=== PATIENT | female | born 1950 | race Caucasian/White ===

== ENCOUNTER → 2016-10-28 | Outpatient (CLI) | payer MEDICARE, BC ==
--- NOTE | 2016-10-28 11:02 | RADIOLOGY REPORT (SQ) ---
EXAM DESCRIPTION: MRI HEAD COMBO COMPLETED DATE/TIME: 10/28/2016 9:38 am REASON FOR STUDY: LUNG CA (C34.02) C34.02 MALIGNANT NEOPLASM OF LEFT MAIN BRONCHUS COMPARISON: None. TECHNIQUE: Multiplanar imaging includes noncontrasted T1, T2, FLAIR, diffusion with ADC map and post gadolinium contrast T1 sequences. Images stored on PACS. CONTRAST TYPE AND DOSE: 17 mL Multihance. RENAL FUNCTION: GFR > 60. LIMITATIONS: None. FINDINGS: ANATOMY: No developmental anomalies. Normal vascular flow voids. Pituitary fossa normal. CSF SPACES: Normal in size and contour. No hemorrhage. CEREBRUM: Sulci and gyri normal in size and contour. Moderate spotty diffuse increased white matter signal on FLAIR imaging from in the bifrontal, biparietal regions and bilateral temporal lobes which has the appearance of old demyelinating disease or small vessel ischemic change. No evidence of hemor rhage, mass, or extraaxial fluid collection. No abnormal enhancement post contrast. POSTERIOR FOSSA: No abnormal brain parenchymal signal. No hemorrhage. No edema, masses, or mass effec t. Internal auditory canals, cerebellopontine angles, mastoids normal. No enhancing lesions. No abnor mal enhancement post contrast. DIFFUSION IMAGING: Negative for acute or subacute infarction. ORBITS: No masses. Globes normal. PARANASAL SINUSES: No fluid levels. Mucosa normal. OTHER: No other significant finding. IMPRESSION: No findings worrisome for brain parenchymal metastatic disease given history lung cancer . Chronic white matter disease, question old demyelinating process versus small vessel ischemic change. No acute brain parenchymal findings. TECHNICAL DOCUMENTATION: JOB ID: [id number] [email or web address]- All Rights Reserved
== END ==
LOC: RAD 07:44
PROVIDERS: ATTEND Radiology Radiation Oncology
DX: C34.02 Malignant neoplasm of left main bronchus (principal)
CPT/HCPCS: 82565; 70553; A9577

== ENCOUNTER → 2016-11-09 | Outpatient (CLI) | payer MEDICARE, BC ==
--- NOTE | 2016-11-10 09:23 | RADIOLOGY REPORT (SQ) ---
EXAM DESCRIPTION: PET CT SKULL/THIGH COMPLETED DATE/TIME: 11/09/2016 9:55 pm REASON FOR STUDY: LUNG CA C34.02 MALIGNANT NEOPLASM OF LEFT MAIN BRONCHUS COMPARISON: Outside studies not available RADIONUCLIDE AND DOSE: 11.23 mCi F18 FDG The route of agent administration: Intravenous FASTING BLOOD SUGAR: 96 mg/dl CONTRAST TYPE AND DOSE: No CT contrast given. TECHNIQUE: Blood glucose level was verified. Above dose of FDG was injected intravenously. 2-D seg mented attenuation correction images were obtained from the base of the skull to the midthighs. Nonc ontrast CT images were obtained for attenuation correction and fusion with emission images. CT image s were performed without oral or intravenous contrast and are not sensitive for parenchymal lesions. A series of overlapping emission PET images were obtained. Images reviewed and manipulated at [facility] work station by the radiologist. Images stored on PACS. LIMITATIONS: None. FINDINGS: HEAD AND NECK: No areas of abnormal metabolic activity in the soft tissues of the head and neck. CHEST: A dominant mass, previously biopsied and shown to be poorly differentiated squamous cell tumor , occludes the left mainstem bronchus with partial collapse of the left upper lobe and left lower lob e, and trace left pleural effusion. The mass measures 7.6 x 6 cm in size with SUV 12.8. A right paratracheal 2 x 1.4 cm lymph node present on CT image 85, with SUV 8.2. A precarinal lymph node is present on axial image 91, 3.6 x 2.4 cm in size with SUV 13 point. A sub- carinal 2.4 x 1.5 cm lymph node is present on axial image 92 with SUV of 9.2. ABDOMEN AND PELVIS: No areas of abnormal metabolic activity in the abdomen or pelvis. Expected physi ologic activity is present in the genitourinary system and bowel. PROXIMAL LOWER EXTREMITIES: No areas of abnormal metabolic activity in the soft tissues of the lower extremities. BONES: No abnormal metabolic activity in the visualized skeleton. ADDITIONAL CT FINDINGS: Heavily calcified carotid bifurcations left greater than right, consider joseph tid Doppler for followup. Post cholecystectomy. 6 cm cyst right upper pole kidney. Colonic diverti culosis without CT signs of diverticulitis. Post hysterectomy. OTHER: Liver activity SUV 2.0, blood pool activity SUV 1.8 IMPRESSION: Malignant left upper lobe mass with left mainstem bronchus occlusion and mediastinal hyp ermetabolic lymph nodes as above. TECHNICAL DOCUMENTATION: JOB ID: [id number] [employer]- All Rights Reserved
== END ==
LOC: RAD 19:00
PROVIDERS: ATTEND Radiology Radiation Oncology
DX: C34.02 Malignant neoplasm of left main bronchus (principal)
CPT/HCPCS: 78815; A9552

== ENCOUNTER 2016-12-27 09:04 | Inpatient (IN) | payer MEDICARE, BC ==
[2016-12-27] MEDS ORDERED: NORMAL SALINE 1000 ML 1,000 ML IV ONE (09:08)
--- NOTE | 2016-12-27 09:13 | ER Document Report ---
ED General - General Stated Complaint: FEVER Time Seen by Provider: 12/27/16 09:04 Mode of Arrival: Medic Information source: Patient, Dr. Office - Notes: 66-year-old stage III lung CA who last received chemotherapy yesterday presents today with fever not feeling well. Patient admits to a cough as well as left flank pain Temp 101.8, patient given Tylenol prior to arrival TRAVEL OUTSIDE OF THE [place] IN LAST 30 DAYS: No - HPI Onset: Just prior to arrival Onset/Duration: Sudden Quality of pain: Achy, Cramping Severity: Mild Pain Level: 1 Associated symptoms: Nonproductive cough, Fever Exacerbated by: Denies Relieved by: Denies Similar symptoms previously: No Recently seen / treated by doctor: Yes Past Medical History - Social History Smoking Status: Former Smoker Cigarette use (# per day): No Chew tobacco use (# tins/day): No Smoking Education Provided: No Family History: Reviewed & Not Pertinent Review of Systems - Review of Systems Notes: REVIEW OF SYSTEMS: CONSTITUTIONAL : Admits to fever EENT: Denies eye, ear, throat, or mouth pain or symptoms. Denies nasal or sinus congestion or discharge. Denies throat, tongue, or mouth swelling or difficulty swallowing. CARDIOVASCULAR: Denies chest pain. Denies palpitations or racing or irregular heart beat. Denies ankle edema. RESPIRATORY: Admits to nonproductive cough GASTROINTESTINAL: Denies abdominal pain or distention. Denies nausea, vomiting , or diarrhea. Denies blood in vomitus, stools, or per rectum. Denies black, tarry stools. Denies constipation. GENITOURINARY: Denies difficulty urinating, painful urination, burning, frequency, blood in urine, or discharge. FEMALE GENITOURINARY: Denies vaginal bleeding, heavy or abnormal periods, irregular periods. Denies vaginal discharge or odor. MUSCULOSKELETAL: Admits to left flank pain SKIN: Denies rash, lesions or sores. HEMATOLOGIC : Denies easy bruising or bleeding. LYMPHATIC: Denies swollen, enlarged glands. NEUROLOGICAL: Denies confusion or altered mental status. Denies passing out or loss of consciousness. Denies dizziness or lightheadedness. Denies headache. Denies weakness or paralysis or loss of use of either side. Denies problems with gait or speech. Denies sensory loss, numbness, or tingling. Denies seizures. PSYCHIATRIC: Denies anxiety or stress. Denies depression, suicidal ideation, or homicidal ideation. ALL OTHER SYSTEMS REVIEWED AND NEGATIVE. PHYSICAL EXAMINATION: GENERAL: Well-appearing, well-nourished and in no acute distress. Febrile HEAD: Atraumatic, normocephalic. EYES: Pupils equal round and reactive to light, extraocular movements intact, conjunctiva are normal. ENT: Nares patent, oropharynx clear without exudates. Moist mucous membranes. NECK: Normal range of motion, supple without lymphadenopathy LUNGS: Breath sounds clear to auscultation bilaterally and equal. No wheezes rales or rhonchi. HEART: Regular rate and rhythm without murmurs ABDOMEN: Soft, nontender, nondistended abdomen. No guarding, no rebound. No masses appreciated. Female : deferred Musculoskeletal: Normal range of motion, no pitting or edema. No cyanosis. NEUROLOGICAL: Cranial nerves grossly intact. Normal speech, normal gait. Normal sensory, motor exams PSYCH: Normal mood, normal affect. SKIN: Hot to touch Dictation was performed using [email or web address] voice recognition software Physical Exam - Vital signs Vitals: Temp Pulse Resp BP Pulse Ox 99 F 114 H 22 H 74/50 L 93 12/27/16 09:05 12/27/16 09:05 12/27/16 09:05 12/27/16 09:05 12/27/16 09:05 Course - Re-evaluation Re-evalutation: 12/27/16 09:13 Septic workup pending Rocephin will be given facemask must be worn in room 12/27/16 10:36 pt noted to febrile white count is 2.7 12/27/16 10:38 Blood pressure initially was extremely low patient does have elevated lactic acid she does meet septic shock criteria 3 L of fluid have been given Blood pressure has now improved to 109/45 Reevaluation has been performed on the patient. Patient vital signs are noted to be 109/45, rr 22, hr 101, t 99.8, 95% on ra Cardiopulmonary exam noted lungs CTA Capillary refill is brisk Peripheral pulses are intact all throughout and bounding Skin Examination notes no tenting - Vital Signs Vital signs: Temp Pulse Resp BP Pulse Ox 99.0 F 114 H 26 H 76/66 L 97 12/27/16 09:23 12/27/16 09:05 12/27/16 09:45 12/27/16 09:45 12/27/16 09:45 - Laboratory Result Diagrams: 12/27/16 09:19 12/27/16 09:19 Laboratory results interpreted by me: 12/27/16 12/27/16 12/27/16 09:19 09:19 09:19 WBC 2.7 L Hgb 11.0 L Hct 33.1 L MCH 26.8 L RDW 21.5 H Plt Count 129 L Seg Neuts % (Manual) 81 H Band Neutrophils % 8 H Lymphocytes % (Manual) 1 L Metamyelocytes % 5 H Abs Lymphs (Manual) 0.0 L Sodium 133.9 L Carbon Dioxide 18 L BUN 21 H Creatinine 2.05 H Est GFR ( Amer) 29 L Est GFR (Non-Af Amer) 24 L Glucose 136 H Lactic Acid 4.1 H Calcium 8.3 L Total Bilirubin 2.2 H Direct Bilirubin 1.7 H AST 127 H ALT 59 H Total Protein 5.7 L Albumin 2.8 L Urine Protein Urine Blood Urine Bilirubin Urine Urobilinogen Ur Leukocyte Esterase 12/27/16 10:10 WBC Hgb Hct MCH RDW Plt Count Seg Neuts % (Manual) Band Neutrophils % Lymphocytes % (Manual) Metamyelocytes % Abs Lymphs (Manual) Sodium Carbon Dioxide BUN Creatinine Est GFR ( Amer) Est GFR (Non-Af Amer) Glucose Lactic Acid Calcium Total Bilirubin Direct Bilirubin AST ALT Total Protein Albumin Urine Protein 100 H Urine Blood SMALL H Urine Bilirubin SMALL H Urine Urobilinogen 2.0 H Ur Leukocyte Esterase LARGE H Critical Care Note - Critical Care Note Total time excluding time spent on procedures (mins): 45 Comments: 45 minutes of critical care time spent in direct contact evaluating and reevaluating the patient, treating symptoms, reviewing labs and studies and speaking with family and consultants excluding any procedures Discharge - Discharge Clinical Impression: Septic shock Lung cancer Qualifiers: Laterality: right Lung location: unspecified part of lung Qualified Code(s): C34.91 - Malignant neoplasm of unspecified part of right bronchus or lung UTI (urinary tract infection) Qualifiers: Urinary tract infection type: acute cystitis Hematuria presence: without hematuria Qualified Code(s): N30.00 - Acute cystitis without hematuria Condition: Serious Disposition: ADMITTED INPATIENT Admitting Provider: Hospitalist Unit Admitted: IMCU Referrals: LOCALMD,NO [Primary Care Provider] - Follow up as needed
[2016-12-27] MEDS: NORMAL SALINE 1000 ML 1,000 ML IV PRN ×3 (09:40→13:01)
[2016-12-27] MEDS ORDERED: CEFTRIAXONE 1 GM/D5W RTU 1 GM/50 ML RTUPB IV ONE (09:45)
[2016-12-27 09:46] LABS: HEMATOCRIT 33.1 % (36.0-47.0); HGB HCT DIFFERENCE -0.1; MEAN CORPUSCULAR HEMOGLOBIN 26.8 pg (27.0-33.4); MEAN CORPUSCULAR HGB CONC 33.1 g/dL (32.0-36.0); MEAN CORPUSCULAR VOLUME 81 fl (80-97); RED CELL DISTRIBUTION WIDTH 21.5 % (11.5-14.0); VENOUS BLOOD BASE EXCESS -3.8 mmol/L; VENOUS BLOOD PCO2 37.3 mmHg (35-63); VENOUS BLOOD PH 7.37 (7.30-7.42); WHITE BLOOD COUNT 2.7 10^3/uL (4.0-10.5)
[2016-12-27 10:00] LABS: ALANINE AMINOTRANSFERASE 59 U/L (9-52); ALBUMIN 2.8 g/dL (3.5-5.0); ALKALINE PHOSPHATASE 55 U/L (38-126); ANION GAP 11 (5-19); ASPARTATE AMINO TRANSFERASE 127 U/L (14-36); BILIRUBIN,DIRECT 1.7 mg/dL (0.0-0.4); BILIRUBIN,TOTAL 2.2 mg/dL (0.2-1.3); BLOOD UREA NITROGEN 21 mg/dL (7-20); CALCIUM 8.3 mg/dL (8.4-10.2); CARBON DIOXIDE 18 mmol/L (22-30); CHLORIDE 105 mmol/L (98-107); CREATININE RESULT 2.05 mg/dL (0.52-1.25); GLUCOSE 136 mg/dL (75-110); POTASSIUM 3.8 mmol/L (3.6-5.0); SODIUM 133.9 mmol/L (137-145); TOTAL PROTEIN 5.7 g/dL (6.3-8.2)
[2016-12-27 10:08] LABS: BAND NEUTROPHILS % (MANUAL) 8 % (3-5); BASOPHILS % (MANUAL) 0 % (0-2); EOSINOPHILS % (MANUAL) 0 % (0-6); LYMPHOCYTES % (MANUAL) 1 % (13-45); TOTAL CELLS COUNTED 100
[2016-12-27 10:09] LABS: ANISOCYTOSIS 3+; MICROCYTOSIS SLIGHT; TOXIC GRANULATION SLIGHT; TOXIC VACUOLATION PRESENT
[2016-12-27 10:10] LABS: OVALOCYTES 1+
[2016-12-27 10:11] LABS: PLATELET CLUMPS PRESENT; TARGET CELLS SLIGHT; TEAR DROP CELLS SLIGHT
[2016-12-27 10:12] LABS: BURR CELLS SLIGHT; POIKILOCYTOSIS SLIGHT
[2016-12-27 10:13] LABS: HYPOCHROMASIA SLIGHT
[2016-12-27 10:29] LABS: APPEARANCE,URINE TURBID; BILIRUBIN,URINE SMALL (NEGATIVE); GLUCOSE, URINE NEGATIVE (NEGATIVE); KETONES,URINE NEGATIVE (NEGATIVE); LEUKOCYTE ESTERASE,URINE LARGE (NEGATIVE); NITRITE,URINE NEGATIVE (NEGATIVE); PROTEIN,URINE 100 mg/dL (NEGATIVE); URINE SPECIFIC GRAVITY 1.021
[2016-12-27] MEDS ORDERED: ALBUTEROL SULFATE 0.083% NEB 2.5 MG/3 ML AMPUL NEB PRN (11:09)
[2016-12-27] MEDS ORDERED: ACETAMINOPHEN 325 MG TABLET PO PRN (11:09)
[2016-12-27] MEDS ORDERED: ONDANSETRON HCL INJ/PF 4 MG/2 ML SDV IV PRN (11:09)
[2016-12-27] MEDS ORDERED: ONDANSETRON 4 MG TAB.RAPDIS PO PRN (11:09)
[2016-12-27] MEDS ORDERED: DEXTROSE 40% GEL 15 GM TUBE PO PRN ×2 (11:17)
[2016-12-27] MEDS ORDERED: GLUCAGON,HUMAN RECOMB 1 MG INJ IM PRN (11:17)
[2016-12-27] MEDS ORDERED: DEXTROSE 50%-WATER 25 GM/50 ML DISP.SYRIN IV PRN ×2 (11:17)
[2016-12-27] MEDS ORDERED: INSULIN LISPRO 100 UNIT/ML 3 ML VIAL SUBCUT PRN (11:17)
--- NOTE | 2016-12-27 11:26 | PDOC H&P ---
History of Present Illness Admission Date/PCP: 12/27/16 10:51 Patient complains of: Fevers and chills started last night. 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 The patient reports that she has been getting treatment for her lung cancer and received chemotherapy yesterday. She went home and had rigors and felt feverish. She presented to the emergency room today and will had complaints of feeling fatigued and was found to have a blood pressure of 76/40. Patient also was noted to have urinary tract infection. Patient denies any cough. She denies any chest pain or shortness of breath. She denies any loss of consciousness. She denies any dysuria hematuria. The patient has diabetes and reports her blood sugars have been normal. The patient does have a history of hypertension and takes Norvasc and Toprol and she has been compliant with her medications. Patient received IV fluids in the emergency room her blood pressure has come up into the 90s now. Past Medical History Cardiac Medical History: Reports: Hypertension Pulmonary History Note: Lung cancer diagnosed October 2016 EENT Medical History: Reports: None Neurological History Note: Peripheral neuropathy Endocrine Medical History: Reports: Diabetes Mellitus Type 2 Renal/ Medical History: Reports: None Malignancy Medical History: Reports: Lung Cancer GI Medical History: Reports: None Psychiatric Medical History: Reports: None Traumatic Medical History: Reports: None Hematology: Reports: None Infectious Medical History: Reports: None Past Surgical History Past Surgical History: Reports: Cholecystectomy, Hysterectomy Social History Information Source: Patient Lives with: Spouse/Significant other Smoking Status: Former Smoker Frequency of Alcohol Use: None Hx Recreational Drug Use: No Drugs: None - Advance Directive Resuscitation Status: Do Not Resuscitate Surrogate healthcare decision maker:: Her Family History Family History: Mother at age 78 had COPD. Her father in his 60s from a motor vehicle accident. Parental Family History Reviewed: Yes Children Family History Reviewed: No Sibling(s) Family History Reviewed.: No Medication/Allergy Home Medications: Amlodipine Besylate [Norvasc 10 mg Tablet] 10 mg PO DAILY 12/27/16 Gabapentin 600 mg PO BID 12/27/16 Metoprolol Succinate 50 mg PO DAILY 12/27/16 Ondansetron HCl [Zofran 8 mg Tablet] 8 mg PO Q8HP PRN 12/27/16 Promethazine HCl [Phenergan 25 mg Tablet] 25 mg PO Q6 PRN 12/27/16 Sitagliptin Phos/Metformin HCl [Janumet 50-1,000 Mg Tablet] 1 each PO DAILY Allergies/Adverse Reactions: No Known Allergies Allergy (Verified 12/27/16 11:09) Review of Systems Constitutional: PRESENT: chills, fatigue, fever(s). ABSENT: headache(s), night sweats, weight gain, weight loss Eyes: ABSENT: visual disturbances Ears: ABSENT: hearing changes Cardiovascular: ABSENT: chest pain, dyspnea on exertion, edema, orthropnea, palpitations Respiratory: ABSENT: cough, hemoptysis Gastrointestinal: ABSENT: abdominal pain, constipation, diarrhea, hematemesis, hematochezia, nausea, vomiting Genitourinary: ABSENT: dysuria, hematuria Musculoskeletal: ABSENT: joint swelling Integumentary: ABSENT: rash, wounds Neurological: PRESENT: paresthesias - Bilateral feet. ABSENT: abnormal gait, abnormal speech, confusion, dizziness, focal weakness, syncope Psychiatric: ABSENT: anxiety, depression Endocrine: ABSENT: cold intolerance, heat intolerance, polydipsia, polyuria Hematologic/Lymphatic: ABSENT: easy bleeding, easy bruising Physical Exam Vital Signs: Temp Pulse Resp BP Pulse Ox 99.0 F 114 H 21 H 97/48 L 95 12/27/16 09:23 12/27/16 09:05 12/27/16 10:50 12/27/16 10:50 12/27/16 10:50 General appearance: PRESENT: no acute distress, obese Head exam: PRESENT: atraumatic, normocephalic Eye exam: PRESENT: conjunctiva pink, EOMI, PERRLA. ABSENT: scleral icterus Ear exam: PRESENT: normal external ear exam Mouth exam: PRESENT: moist, tongue midline Neck exam: ABSENT: carotid bruit, JVD, lymphadenopathy, thyromegaly Respiratory exam: PRESENT: clear to auscultation mike. ABSENT: rales, rhonchi, wheezes Cardiovascular exam: PRESENT: RRR. ABSENT: diastolic murmur, rubs, systolic murmur Pulses: PRESENT: normal dorsalis pedis pul Vascular exam: PRESENT: normal capillary refill GI/Abdominal exam: PRESENT: normal bowel sounds, soft. ABSENT: distended, guarding, mass, organolmegaly, rebound, tenderness Rectal exam: PRESENT: deferred Extremities exam: ABSENT: calf tenderness, clubbing, pedal edema Neurological exam: PRESENT: alert, awake, oriented to person, oriented to place , oriented to time, oriented to situation, CN II-XII grossly intact. ABSENT: motor sensory deficit Psychiatric exam: PRESENT: appropriate affect Skin exam: PRESENT: dry, intact, warm. ABSENT: cyanosis, rash Assessment & Plan - Diagnosis (1) Septic shock Is this a current diagnosis for this admission?: Yes Plan: Patient presented with UTI, hypotension and fevers and chills. All this is consistent with septic shock. Patient's blood pressure has responded IV fluids and we will continue with those. Will continue with the Rocephin as given in the emergency room. (2) UTI (urinary tract infection) Qualifiers: Urinary tract infection type: acute cystitis Hematuria presence: without hematuria Qualified Code(s): N30.00 - Acute cystitis without hematuria Is this a current diagnosis for this admission?: Yes Plan: Lung cancer patient has been started on Rocephin. Blood culture and urine cultures have been obtained. (3) Diabetes mellitus Is this a current diagnosis for this admission?: Yes Plan: Will hold the Janumet and cover with sliding scale insulin while hospitalized. (4) Hypertension Is this a current diagnosis for this admission?: Yes Plan: We will hold the metoprolol and Norvasc until her blood pressure returned to the normal range. (5) DNR (do not resuscitate) Is this a current diagnosis for this admission?: Yes Plan: This was discussed with the and son at the bedside. The patient wishes to be a DO NOT RESUSCITATE. (6) Peripheral neuropathy Is this a current diagnosis for this admission?: Yes Plan: Continue with gabapentin. (7) Lung cancer Qualifiers: Laterality: right Lung location: unspecified part of lung Qualified Code( s): C34.91 - Malignant neoplasm of unspecified part of right bronchus or lung Is this a current diagnosis for this admission?: Yes Plan: Patient is followed by Dr. Tovar and received chemo yesterday. - Time Time Spent: 50 to 70 Minutes - Inpatient Certification Medical Necessity: Need For IV Fluids, Need for IV Antibiotics
--- NOTE | 2016-12-27 11:47 | PDOC CONSULTATION ---
Consultation Consult Date: 12/27/16 Attending physician:: PAULO WASSERMAN Consult reason:: Sepsis, UTI, N/V, ARF, Stage III NSCLC History of Present Illness Admission Date/PCP: 12/27/16 10:51 Patient complains of: N/V, fevers History of Present Illness: 66-year-old female with known history of stage III non-small cell lung cancer, she is currently on concurrent chemoradiation with carboplatin and paclitaxel, she just received her fifth weekly chemo on Thursday. Soon after receiving that she had fevers, chills, began having intractable nausea and vomiting. Ultimately this morning, her son called me and noted that she was unable to get out of bed and was having the above symptoms, I instructed them to take her to the ED, EMS came and brought her here, upon presentation she was hypotensive, tachycardic, febrile, labs were drawn which indicated a creatinine now up to 2, UA indicated evidence of UTI, so does appear to be a urosepsis type picture. Past Medical History Cardiac Medical History: Reports: Hypertension EENT Medical History: Reports: None Endocrine Medical History: Reports: Diabetes Mellitus Type 1, Diabetes Mellitus Type 2 Renal/ Medical History: Reports: None Malignancy Medical History: Reports: Lung Cancer GI Medical History: Reports: None Psychiatric Medical History: Reports: None Traumatic Medical History: Reports: None Hematology: Reports: None Infectious Medical History: Reports: None Past Surgical History Past Surgical History: Reports: Cholecystectomy, Hysterectomy Social History Lives with: Spouse/Significant other Smoking Status: Former Smoker Frequency of Alcohol Use: None Hx Recreational Drug Use: No Drugs: None - Advance Directive Resuscitation Status: Do Not Resuscitate Family History Family History: Reviewed & Not Pertinent Parental Family History Reviewed: Yes Children Family History Reviewed: Yes Sibling(s) Family History Reviewed.: Yes Medication/Allergy Home Medications: Amlodipine Besylate [Norvasc 10 mg Tablet] 10 mg PO DAILY 12/27/16 Gabapentin 600 mg PO BID 12/27/16 Metoprolol Succinate 50 mg PO DAILY 12/27/16 Ondansetron HCl [Zofran 8 mg Tablet] 8 mg PO Q8HP PRN 12/27/16 Promethazine HCl [Phenergan 25 mg Tablet] 25 mg PO Q6 PRN 12/27/16 Sitagliptin Phos/Metformin HCl [Janumet 50-1,000 Mg Tablet] 1 each PO DAILY Allergies/Adverse Reactions: No Known Allergies Allergy (Verified 12/27/16 11:09) Review of Systems Constitutional: ABSENT: chills, fever(s), headache(s), weight gain, weight loss Eyes: ABSENT: visual disturbances Ears: ABSENT: hearing changes Cardiovascular: ABSENT: chest pain, dyspnea on exertion, edema, orthropnea, palpitations Respiratory: ABSENT: cough, hemoptysis Gastrointestinal: ABSENT: abdominal pain, constipation, diarrhea, hematemesis, hematochezia, nausea, vomiting Genitourinary: ABSENT: dysuria, hematuria Musculoskeletal: ABSENT: joint swelling Integumentary: ABSENT: rash, wounds Neurological: ABSENT: abnormal gait, abnormal speech, confusion, dizziness, focal weakness, syncope Psychiatric: ABSENT: anxiety, depression, homidical ideation, suicidal ideation Endocrine: ABSENT: cold intolerance, heat intolerance, polydipsia, polyuria Hematologic/Lymphatic: ABSENT: easy bleeding, easy bruising Physical Exam Vital Signs: Temp Pulse Resp BP Pulse Ox 99.0 F 114 H 20 82/50 L 94 12/27/16 09:23 12/27/16 09:05 12/27/16 11:30 12/27/16 11:30 12/27/16 11:30 General appearance: PRESENT: no acute distress, well-developed, well-nourished Head exam: PRESENT: atraumatic, normocephalic Eye exam: PRESENT: conjunctiva pink, EOMI, PERRLA. ABSENT: scleral icterus Ear exam: PRESENT: normal external ear exam Mouth exam: PRESENT: moist, tongue midline Neck exam: ABSENT: carotid bruit, JVD, lymphadenopathy, thyromegaly Respiratory exam: PRESENT: clear to auscultation mike. ABSENT: rales, rhonchi, wheezes Cardiovascular exam: PRESENT: RRR. ABSENT: diastolic murmur, rubs, systolic murmur Pulses: PRESENT: normal dorsalis pedis pul Vascular exam: PRESENT: normal capillary refill GI/Abdominal exam: PRESENT: normal bowel sounds, soft. ABSENT: distended, guarding, mass, organolmegaly, rebound, tenderness Rectal exam: PRESENT: deferred Extremities exam: PRESENT: full ROM. ABSENT: calf tenderness, clubbing, pedal edema Neurological exam: PRESENT: alert, awake, oriented to person, oriented to place , oriented to time, oriented to situation, CN II-XII grossly intact. ABSENT: motor sensory deficit Psychiatric exam: PRESENT: appropriate affect, normal mood. ABSENT: homicidal ideation, suicidal ideation Skin exam: PRESENT: dry, intact, warm. ABSENT: cyanosis, rash Assessment & Plan - Diagnosis (1) Septic shock Is this a current diagnosis for this admission?: Yes Plan: Septic shock secondary to UTI, so agree with Rocephin at present, she is not neutropenic so we do not need broad-spectrum antibiotics as of now, agree with not giving vancomycin because this is most likely a gram-negative sepsis. Continue with aggressive hydration and antibiotics per hospitalist team. (2) Lung cancer Qualifiers: Laterality: right Lung location: middle lobe of lung Qualified Code(s): C34.2 - Malignant neoplasm of middle lobe, bronchus or lung Is this a current diagnosis for this admission?: Yes Plan: She has stage III lung cancer, is on week 5 of concurrent chemoradiation, of course, chemo will be on hold until her sepsis resolves, we will then discuss resuming therapy as an outpatient. We will need to let radiation oncology now on Thursday that she will be on hold from radiation until her clinical status improves. (3) Acute renal failure (ARF) Qualifiers: Acute renal failure type: with acute tubular necrosis Qualified Code(s): N17.0 - Acute kidney failure with tubular necrosis Is this a current diagnosis for this admission?: Yes Plan: Patient with acute renal failure, probably secondary to the septic picture as well as dehydration from nausea and vomiting, continue with aggressive hydration. Minimize nephrotoxic medications. - Time Time Spent: Greater than 70 Minutes Critical Time spent with patient: 35 or more minutes - Inpatient Certification Based on my medical assessment, after consideration of the patient's comorbidities, presenting symptoms, or acuity I expect that the services needed warrant INPATIENT care.: Yes I certify that my determination is in accordance with my understanding of Medicare's requirements for reasonable and necessary INPATIENT services [42 CFR 412.3e].: Yes Medical Necessity: Need For Continuous Telemetry Monitoring, Need for IV Antibiotics, Risk of Complication if Not Cared For in Hospital
[2016-12-27] MEDS ORDERED: NORMAL SALINE 1000 ML 1,000 ML IV PRN (11:51)
[2016-12-28] MEDS: NORMAL SALINE 1000 ML 1,000 ML IV PRN ×2 (04:08→23:17)
[2016-12-28 05:11] LABS: ANION GAP 9 (5-19); BLOOD UREA NITROGEN 25 mg/dL (7-20); CARBON DIOXIDE 16 mmol/L (22-30); CHLORIDE 115 mmol/L (98-107); CREATININE RESULT 1.23 mg/dL (0.52-1.25); GLUCOSE 72 mg/dL (75-110); MAGNESIUM 1.4 mg/dL (1.6-2.3); POTASSIUM 3.6 mmol/L (3.6-5.0); SODIUM 139.6 mmol/L (137-145)
[2016-12-28 05:20] LABS: CALCIUM 6.9 mg/dL (8.4-10.2)
[2016-12-28] MEDS ORDERED: CALCIUM GLUCONATE 1,000 MG in DEXTROSE 5%-WATER 50 ML IV ONE (06:15)
[2016-12-28 07:33] LABS: HEMATOCRIT 32.2 % (36.0-47.0); HEMOGLOBIN 10.6 g/dL (12.0-15.5); HGB HCT DIFFERENCE -0.4; MEAN CORPUSCULAR HEMOGLOBIN 26.9 pg (27.0-33.4); MEAN CORPUSCULAR HGB CONC 32.8 g/dL (32.0-36.0); MEAN CORPUSCULAR VOLUME 82 fl (80-97); RED BLOOD COUNT 3.92 10^6/uL (3.72-5.28); RED CELL DISTRIBUTION WIDTH 21.7 % (11.5-14.0); WHITE BLOOD COUNT 2.1 10^3/uL (4.0-10.5)
--- NOTE | 2016-12-28 07:33 | EKG REPORT ---
SEVERITY:- ABNORMAL ECG - SINUS TACHYCARDIA BORDERLINE LEFT AXIS DEVIATION NONSPECIFIC T ABNORMALITIES, LATERAL LEADS BORDERLINE PROLONGED QT INTERVAL : Confirmed by: Rk Suresh MD 28-Dec-2016 07:33:20
[2016-12-28] MEDS: FAMOTIDINE 20 MG TABLET PO SCH ×2 (08:41→21:43)
[2016-12-28] MEDS: GABAPENTIN 300 MG CAPSULE PO SCH ×2 (08:41→21:44)
[2016-12-28] MEDS ORDERED: CALCIUM GLUCONATE 1000 MG/10 ML INJ IV ONE (09:00)
--- NOTE | 2016-12-28 09:12 | PDOC PROGRESS REPORT ---
Subjective Progress Note for:: 12/28/16 Subjective:: Denies any complaints Physical Exam Vital Signs: Temp Pulse Resp BP Pulse Ox 98.8 F 85 18 108/49 L 98 12/28/16 08:09 12/28/16 08:09 12/28/16 08:09 12/28/16 08:09 12/28/16 08:09 Intake & Output 12/27/16 12/28/16 12/29/16 06:59 06:59 06:59 Intake Total 522 Output Total 200 Balance 322 Weight 86.3 kg General appearance: PRESENT: no acute distress Eye exam: PRESENT: conjunctiva pink. ABSENT: scleral icterus Ear exam: PRESENT: normal external ear exam Mouth exam: PRESENT: moist, tongue midline Neck exam: ABSENT: JVD Respiratory exam: PRESENT: clear to auscultation mike. ABSENT: rales, rhonchi, wheezes Cardiovascular exam: PRESENT: RRR. ABSENT: diastolic murmur, rubs, systolic murmur GI/Abdominal exam: PRESENT: normal bowel sounds, soft. ABSENT: distended, guarding, mass, organolmegaly, rebound, tenderness Extremities exam: ABSENT: calf tenderness, clubbing, pedal edema Neurological exam: PRESENT: alert, awake, oriented to person, oriented to place , oriented to time, oriented to situation, CN II-XII grossly intact. ABSENT: motor sensory deficit Psychiatric exam: PRESENT: appropriate affect Skin exam: PRESENT: dry, intact, warm. ABSENT: cyanosis, rash Results Laboratory Results: 12/28/16 06:55 12/28/16 04:24 12/27/16 12/28/16 12/28/16 14:09 04:24 04:24 WBC Cancelled RBC Cancelled Hgb Cancelled Hct Cancelled MCV Cancelled MCH Cancelled MCHC Cancelled RDW Cancelled Plt Count Cancelled Sodium 139.6 Potassium 3.6 Chloride 115 H Carbon Dioxide 16 L Anion Gap 9 BUN 25 H Creatinine 1.23 Est GFR ( Amer) 53 L Est GFR (Non-Af Amer) 44 L Glucose 72 L Lactic Acid 2.2 H Calcium 6.9 L* Magnesium 1.4 L 12/28/16 06:55 WBC 2.1 L RBC 3.92 Hgb 10.6 L Hct 32.2 L MCV 82 MCH 26.9 L MCHC 32.8 RDW 21.7 H Plt Count 92 L Sodium Potassium Chloride Carbon Dioxide Anion Gap BUN Creatinine Est GFR ( Amer) Est GFR (Non-Af Amer) Glucose Lactic Acid Calcium Magnesium Assessment & Plan - Diagnosis (1) Septic shock Is this a current diagnosis for this admission?: Yes Plan: Patient had septic shock from a urinary tract infection. She has responded to IV fluids and IV Rocephin. Will continue with those. Her blood pressure has normalized. (2) UTI (urinary tract infection) Qualifiers: Urinary tract infection type: acute cystitis Hematuria presence: without hematuria Qualified Code(s): N30.00 - Acute cystitis without hematuria Is this a current diagnosis for this admission?: Yes Plan: Urine culture is growing out a gram-negative eva. Will continue with the Rocephin. (3) Diabetes mellitus Is this a current diagnosis for this admission?: Yes Plan: Will hold the Janumet and cover with sliding scale insulin while hospitalized. (4) Hypertension Is this a current diagnosis for this admission?: Yes Plan: We will hold the metoprolol and Norvasc until her blood pressure returned to the normal range. (5) DNR (do not resuscitate) Is this a current diagnosis for this admission?: Yes Plan: This was discussed with the and son at the bedside. The patient wishes to be a DO NOT RESUSCITATE. (6) Peripheral neuropathy Is this a current diagnosis for this admission?: Yes Plan: Continue with gabapentin. (7) Lung cancer Qualifiers: Laterality: right Lung location: middle lobe of lung Qualified Code(s): C34.2 - Malignant neoplasm of middle lobe, bronchus or lung Is this a current diagnosis for this admission?: Yes Plan: Patient is followed by Dr. Tovar (8) Acute renal failure (ARF) Qualifiers: Acute renal failure type: with acute tubular necrosis Qualified Code(s): N17.0 - Acute kidney failure with tubular necrosis Is this a current diagnosis for this admission?: Yes Plan: Resolved with IV fluids. - Time Time Spent with patient: 25-34 minutes - Inpatient Certification Medical Necessity: Need For IV Fluids, Need for IV Antibiotics
[2016-12-28] MEDS ORDERED: CEFTRIAXONE 1 GM/D5W RTU 1 GM/50 ML RTUPB IV SCH (10:00)
[2016-12-28] MEDS ORDERED: ENOXAPARIN SODIUM INJ 40 MG/0.4 ML DISP.SYRIN SUBCUT SCH (10:00)
[2016-12-29 04:36] LABS: ALANINE AMINOTRANSFERASE 54 U/L (9-52); ALBUMIN 2.7 g/dL (3.5-5.0); ALKALINE PHOSPHATASE 78 U/L (38-126); ANION GAP 7 (5-19); ASPARTATE AMINO TRANSFERASE 71 U/L (14-36); BILIRUBIN,DIRECT 0.7 mg/dL (0.0-0.4); BILIRUBIN,TOTAL 0.8 mg/dL (0.2-1.3); BLOOD UREA NITROGEN 13 mg/dL (7-20); CALCIUM 7.3 mg/dL (8.4-10.2); CARBON DIOXIDE 21 mmol/L (22-30); CHLORIDE 111 mmol/L (98-107); CREATININE RESULT 0.76 mg/dL (0.52-1.25); GLUCOSE 78 mg/dL (75-110); POTASSIUM 3.1 mmol/L (3.6-5.0); SODIUM 139.2 mmol/L (137-145); TOTAL PROTEIN 5.3 g/dL (6.3-8.2)
[2016-12-29 04:43] LABS: HEMOGLOBIN 10.1 g/dL (12.0-15.5); HGB HCT DIFFERENCE 0.3; MEAN CORPUSCULAR HEMOGLOBIN 26.8 pg (27.0-33.4); MEAN CORPUSCULAR HGB CONC 33.7 g/dL (32.0-36.0); MEAN CORPUSCULAR VOLUME 79 fl (80-97); RED BLOOD COUNT 3.77 10^6/uL (3.72-5.28); RED CELL DISTRIBUTION WIDTH 21.9 % (11.5-14.0)
[2016-12-29 04:56] LABS: WHITE BLOOD COUNT 1.5 10^3/uL (4.0-10.5)
[2016-12-29 05:04] LABS: BASOPHILS % (MANUAL) 2 % (0-2); EOSINOPHILS % (MANUAL) 4 % (0-6); LYMPHOCYTES % (MANUAL) 14 % (13-45); TOTAL CELLS COUNTED 50
[2016-12-29 05:06] LABS: SMUDGE CELLS PRESENT
[2016-12-29 05:16] LABS: ANISOCYTOSIS 3+; BURR CELLS 1+; HYPOCHROMASIA SLIGHT; MICROCYTOSIS SLIGHT; OVALOCYTES 2+; POIKILOCYTOSIS 2+; TEAR DROP CELLS SLIGHT; TOXIC GRANULATION 1+
[2016-12-29 05:18] LABS: BAND NEUTROPHILS % (MANUAL) 12 % (3-5)
[2016-12-29] MEDS: NORMAL SALINE 1000 ML 1,000 ML IV PRN (06:43)
--- NOTE | 2016-12-29 08:01 | PDOC PROGRESS REPORT ---
Subjective Progress Note for:: 12/29/16 Subjective:: Patient overall looks much better, her kidney function has returned to normal, her urine culture indicates Klebsiella pneumonia, blood cultures are negative thus far. Awaiting sensitivities. Physical Exam Vital Signs: Temp Pulse Resp BP Pulse Ox 98.2 F 80 20 128/65 H 97 12/29/16 03:20 12/29/16 03:20 12/29/16 03:20 12/29/16 03:20 12/29/16 03:20 Intake & Output 12/28/16 12/29/16 12/30/16 06:59 06:59 06:59 Intake Total 522 1826 Output Total 200 400 Balance 322 1426 Weight 86.3 kg 83.1 kg General appearance: PRESENT: no acute distress, well-developed, well-nourished Head exam: PRESENT: atraumatic, normocephalic Eye exam: PRESENT: conjunctiva pink, EOMI, PERRLA. ABSENT: scleral icterus Ear exam: PRESENT: normal external ear exam Mouth exam: PRESENT: moist, tongue midline Neck exam: ABSENT: carotid bruit, JVD, lymphadenopathy, thyromegaly Respiratory exam: PRESENT: clear to auscultation mike. ABSENT: rales, rhonchi, wheezes Cardiovascular exam: PRESENT: RRR. ABSENT: diastolic murmur, rubs, systolic murmur Pulses: PRESENT: normal dorsalis pedis pul Vascular exam: PRESENT: normal capillary refill GI/Abdominal exam: PRESENT: normal bowel sounds, soft. ABSENT: distended, guarding, mass, organolmegaly, rebound, tenderness Rectal exam: PRESENT: deferred Extremities exam: PRESENT: full ROM. ABSENT: calf tenderness, clubbing, pedal edema Neurological exam: PRESENT: alert, awake, oriented to person, oriented to place , oriented to time, oriented to situation, CN II-XII grossly intact. ABSENT: motor sensory deficit Psychiatric exam: PRESENT: appropriate affect, normal mood. ABSENT: homicidal ideation, suicidal ideation Skin exam: PRESENT: dry, intact, warm. ABSENT: cyanosis, rash Results Laboratory Results: 12/29/16 04:04 12/29/16 04:04 12/29/16 12/29/16 04:04 04:04 WBC 1.5 L* RBC 3.77 Hgb 10.1 L Hct 30.0 L MCV 79 L MCH 26.8 L MCHC 33.7 RDW 21.9 H Plt Count 93 L Seg Neutrophils % Not Reportable Lymphocytes % Not Reportable Monocytes % Not Reportable Eosinophils % Not Reportable Basophils % Not Reportable Absolute Neutrophils Not Reportable Absolute Lymphocytes Not Reportable Absolute Monocytes Not Reportable Absolute Eosinophils Not Reportable Absolute Basophils Not Reportable Sodium 139.2 Potassium 3.1 L Chloride 111 H Carbon Dioxide 21 L Anion Gap 7 BUN 13 Creatinine 0.76 Est GFR ( Amer) > 60 Est GFR (Non-Af Amer) > 60 Glucose 78 Calcium 7.3 L Total Bilirubin 0.8 AST 71 H ALT 54 H Alkaline Phosphatase 78 Total Protein 5.3 L Albumin 2.7 L Assessment & Plan - Diagnosis (1) Septic shock Is this a current diagnosis for this admission?: Yes Plan: Greatly improved, secondary to UTI source, Klebsiella pneumonia, continue with current antibiotic therapy per hospitalist team, follow-up sensitivities. (2) Lung cancer Qualifiers: Laterality: right Lung location: middle lobe of lung Qualified Code(s): C34.2 - Malignant neoplasm of middle lobe, bronchus or lung Is this a current diagnosis for this admission?: Yes Plan: We will hold radiotherapy today, she will not receive chemotherapy this week and probably will not receive chemotherapy for the rest of her treatment course. She probably has another 7-10 days of radiotherapy left. (3) Acute renal failure (ARF) Qualifiers: Acute renal failure type: with acute tubular necrosis Qualified Code(s): N17.0 - Acute kidney failure with tubular necrosis Is this a current diagnosis for this admission?: Yes Plan: Improved, secondary septic shock as well as dehydration - Time Time Spent with patient: 35 or more minutes Critical Time spent with patient: 35 or more minutes
[2016-12-29 08:23] VITALS: BP 91/51
[2016-12-29 10:32] LABS: PATH REVIEW PATHOLOGIST REVIEWED
[2016-12-29 10:34] LABS: PATH REVIEW PATHOLOGIST REVIEWED
--- NOTE | 2016-12-29 11:01 | PDOC DISCHARGE SUMMARY ---
General - Admit/Disc Date/PCP Admission Date/Primary Care Provider: 12/27/16 11:09 Discharge Date: 12/29/16 - Discharge Diagnosis (1) Septic shock Is this a current diagnosis for this admission?: Yes (2) UTI (urinary tract infection) Is this a current diagnosis for this admission?: Yes Summary: Patient growing Klebsiella from cultures (3) Diabetes mellitus Is this a current diagnosis for this admission?: Yes (4) Hypertension Is this a current diagnosis for this admission?: Yes (5) DNR (do not resuscitate) Is this a current diagnosis for this admission?: Yes (6) Peripheral neuropathy Is this a current diagnosis for this admission?: Yes (7) Lung cancer Is this a current diagnosis for this admission?: Yes (8) Acute renal failure (ARF) Is this a current diagnosis for this admission?: Yes Summary: Secondary to dehydration. Has resolved - Additional Information Resuscitation Status: Do Not Resuscitate Discharge Diet: Cardiac Discharge Activity: Activity As Tolerated Home Medications: Amlodipine Besylate [Norvasc 10 mg Tablet] 10 mg PO DAILY 12/27/16 Baclofen [Baclofen 10 mg Tablet] 10 mg PO Q6 PRN 12/27/16 Gabapentin [Neurontin] 600 mg PO DAILY 12/27/16 Metoprolol Succinate [Toprol Xl 50 mg Tab.sr] 50 mg PO DAILY 12/27/16 Ondansetron HCl 8 mg PO Q8 PRN 12/27/16 Promethazine HCl [Phenergan 25 mg Tablet] 25 mg PO Q6 PRN 12/27/16 Sitagliptin Phos/Metformin HCl [Janumet 50-1,000 mg Tablet] 1 each PO QAM Cefuroxime Axetil [Ceftin 500 mg Tablet] 1 tab PO BID #24 tablet 12/29/16 History of Present Illness History of Present Illness: ANUP BARRIOS is a 66 year old female diagnosed in October of this year 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 The patient reports that she has been getting treatment for her lung cancer and received chemotherapy yesterday. She went home and had rigors and felt feverish. She presented to the emergency room today and will had complaints of feeling fatigued and was found to have a blood pressure of 76/40. Patient also was noted to have urinary tract infection. Patient denies any cough. She denies any chest pain or shortness of breath. She denies any loss of consciousness. She denies any dysuria hematuria. The patient has diabetes and reports her blood sugars have been normal. The patient does have a history of hypertension and takes Norvasc and Toprol and she has been compliant with her medications. Patient received IV fluids in the emergency room her blood pressure has come up into the 90s now. Hospital Course Hospital Course: 66-year-old female who presented with hypotension consistent with acute septic shock. Patient has lung cancer had been getting chemotherapy and had that the day before she presented. She was found to have a urinary tract infection which was the source for her sepsis. Patient was treated aggressively with IV fluids and started on Rocephin. Patient's hypotension resolved with fluids and her urine culture grew out Klebsiella. The patient had acute renal failure also when she presented and that resolved with IV fluids. Patient's other medical problems were unchanged. The patient is being sent home on Ceftin to complete a total of 14 days of antibiotics. She was supposed to start radiation therapy today and that will be postponed until tomorrow she will follow-up with oncology in 1 week. Physical Exam Vital Signs: Temp Pulse Resp BP Pulse Ox 97.9 F 91 16 91/51 L 99 12/29/16 08:20 12/29/16 08:20 12/29/16 08:20 12/29/16 08:20 12/29/16 08:20 Intake & Output 12/28/16 12/29/16 12/30/16 06:59 06:59 06:59 Intake Total 522 3626 Output Total 200 400 Balance 322 3226 Weight 86.3 kg 83.1 kg General appearance: PRESENT: no acute distress Eye exam: PRESENT: conjunctiva pink. ABSENT: scleral icterus Mouth exam: PRESENT: moist, tongue midline Neck exam: ABSENT: JVD Respiratory exam: PRESENT: clear to auscultation mike. ABSENT: rales, rhonchi, wheezes Cardiovascular exam: PRESENT: RRR. ABSENT: diastolic murmur, rubs, systolic murmur GI/Abdominal exam: PRESENT: normal bowel sounds, soft. ABSENT: distended, guarding, mass, organolmegaly, rebound, tenderness Extremities exam: ABSENT: calf tenderness, clubbing, pedal edema Neurological exam: PRESENT: alert, awake, oriented to person, oriented to place , oriented to time, oriented to situation, CN II-XII grossly intact. ABSENT: motor sensory deficit Psychiatric exam: PRESENT: appropriate affect Skin exam: PRESENT: dry, intact, warm. ABSENT: cyanosis, rash Results Laboratory Results: 12/29/16 04:04 12/29/16 04:04 12/29/16 12/29/16 04:04 04:04 WBC 1.5 L* RBC 3.77 Hgb 10.1 L Hct 30.0 L MCV 79 L MCH 26.8 L MCHC 33.7 RDW 21.9 H Plt Count 93 L Seg Neutrophils % Not Reportable Lymphocytes % Not Reportable Monocytes % Not Reportable Eosinophils % Not Reportable Basophils % Not Reportable Absolute Neutrophils Not Reportable Absolute Lymphocytes Not Reportable Absolute Monocytes Not Reportable Absolute Eosinophils Not Reportable Absolute Basophils Not Reportable Sodium 139.2 Potassium 3.1 L Chloride 111 H Carbon Dioxide 21 L Anion Gap 7 BUN 13 Creatinine 0.76 Est GFR ( Amer) > 60 Est GFR (Non-Af Amer) > 60 Glucose 78 Calcium 7.3 L Total Bilirubin 0.8 AST 71 H ALT 54 H Alkaline Phosphatase 78 Total Protein 5.3 L Albumin 2.7 L Qualifiers PATEINT BEING DISCHARGED WITH ANY OF THE FOLLOWING DIAGNOSIS?: No Plan Discharge Plan: Patient is discharged to home. Will follow up with radiation oncology tomorrow and follow-up with oncology in 1 week. Time Spent: Greater than 30 Minutes
== END 2016-12-29 10:03 | disposition home or self-care (01) | DRG 871 ==
LOC: ER 09:04 → UNDOADMIN 10:51 → EH 10:51 → UNDOADMIN 11:09 → 3W 15:53
PROVIDERS: ADMIT Internal Medicine; ATTEND Internal Medicine
PROC: 3E0F73Z Introduction of Anti-inflammatory into Respiratory Tract, Via Natural or Artificial Opening (ICD-10-PCS; principal; 2016-12-27)
DX: A41.50 Gram-negative sepsis, unspecified (principal); R65.21 Severe sepsis with septic shock; N17.0 Acute kidney failure with tubular necrosis; C77.1 Secondary and unspecified malignant neoplasm of intrathoracic lymph nodes; C34.2 Malignant neoplasm of middle lobe, bronchus or lung; N30.00 Acute cystitis without hematuria; B96.1 Klebsiella pneumoniae [K. pneumoniae] as the cause of diseases classified elsewhere; E11.9 Type 2 diabetes mellitus without complications; I10 Essential (primary) hypertension; Z66 Do not resuscitate; G62.9 Polyneuropathy, unspecified; E86.0 Dehydration; Z79.899 Other long term (current) drug therapy; Z90.49 Acquired absence of other specified parts of digestive tract; Z90.710 Acquired absence of both cervix and uterus; Z87.891 Personal history of nicotine dependence; Z83.6 Family history of other diseases of the respiratory system
CPT/HCPCS: 36415; 51701; 80048; 80053; 81001; 82803; 82962; 83605; 83735; 85025; 85027; 85610; 87040; 87086; 87088; 87186; 93005; 93010; 96365; 99291; J0610; J0696; J7030

== ENCOUNTER → 2017-01-28 | Outpatient (CLI) | payer MEDICARE, BC ==
--- NOTE | 2017-01-28 09:49 | RADIOLOGY REPORT (SQ) ---
EXAM DESCRIPTION: CT CHEST WITHOUT COMPLETED DATE/TIME: 01/28/2017 8:54 am REASON FOR STUDY: LUNG CA C34.12 MALIGNANT NEOPLASM OF UPPER LOBE, LEFT BRONCHUS OR SREE COMPARISON: PET-CT 11/09/2016 TECHNIQUE: CT scan performed of the chest without intravenous contrast. Images reviewed with lung, soft tissue and bone windows. Reconstructed coronal and sagittal MPR images reviewed. All images st ored on PACS. All CT scanners at this facility use dose modulation, iterative reconstruction, and/or weight based d osing when appropriate to reduce radiation dose to as low as reasonably achievable (ALARA). [facility]: Dose Right [facility]: CareDose [facility]: Dose Right [facility]: Teradose 4D [facility]: [employer] RADIATION DOSE: Up-to-date CT equipment and radiation dose reduction techniques were employed. CTDIv ol: 9.2 mGy. DLP: 346 mGy-cm. mGy. LIMITATIONS: No technical limitations. FINDINGS: LUNGS AND PLEURA: The left upper lobe bronchus is occluded with soft tissue on axial image s 48-52. There is volume loss and collapse in the left upper lobe. Postobstructive pneumonia could not entirely be excluded. The left lower lobe bronchus and segmental airways are widely patent. Left lower lobe well expanded and clear. Right lung well expanded and clear. Right airway is widely patent. No pleural effusions. No pneumothorax. HILAR AND MEDIASTINAL STRUCTURES: 1.6 x 1.2 cm left supraclavicular lymph node axial image 9. This i s larger than on prior PET-CT 11/09/2016, where it measured about 0.8 x 0.7 cm in size. Other mediastinal lymph nodes are significantly smaller than on prior PET-CT 11/09/2016. Right paratra cheal lymph node is no longer identified. Precarinal lymph node is 1.9 by 1 cm in size (was 3.6 x 2. 4 cm in size on 11/09/2016). HEART AND VASCULAR STRUCTURES: No aneurysm. No pericardial effusion. UPPER ABDOMEN: post cholecystectomy THYROID AND OTHER SOFT TISSUES: No masses. No adenopathy. BONES: No significant finding. HARDWARE: None in the chest. OTHER: No other significant findings. IMPRESSION: Decrease in mediastinal adenopathy compared 11/09/2016 Persistent left upper lobe volume loss and consolidation, left upper lobe bronchus occluded. New left supraclavicular lymph node TECHNICAL DOCUMENTATION: JOB ID: [id number] Quality ID # [id number]: Final reports with documentation of one or more dose reduction techniques (e.g., Au tomated exposure control, adjustment of the mA and/or kV according to patient size, use of iterative reconstruction technique) 2010 [employer]- All Rights Reserved
== END ==
LOC: RAD 08:43
PROVIDERS: ATTEND Internal Medicine
DX: C34.12 Malignant neoplasm of upper lobe, left bronchus or lung (principal)
CPT/HCPCS: 71250

== ENCOUNTER → 2017-05-05 | Outpatient (CLI) | payer MEDICARE, BC ==
--- NOTE | 2017-05-05 09:22 | RADIOLOGY REPORT (SQ) ---
EXAM DESCRIPTION: CT CHEST WITH; CT ABD/PELVIS WITH IV ONLY COMPLETED DATE/TIME: 05/05/2017 8:32 am REASON FOR STUDY: C34.12 MALIGNANT NEOPLASM OF UPPER LOBE, LEFT BRONCHUS OR LUNG C34.12 MALIGNANT N EOPLASM OF UPPER LOBE, LEFT BRONCHUS OR SREE CONTRAST TYPE AND DOSE: contrast/concentration: Isovue 370.00 mg/ml; Total Contrast Delivered: 83.0 ml; Total Saline Delivered: 68.0 ml RENAL FUNCTION: Creatinine 0.8 COMPARISON: CT chest 01/28/2017. PET-CT 11/09/2016. TECHNIQUE: CT scan of the chest performed using helical scanning technique with dynamic intravenous contrast injection. Images reviewed with lung, soft tissue and bone windows. Reconstructed coronal a nd sagittal MPR images reviewed. All images stored on PACS. All CT scanners at this facility use dose modulation, iterative reconstruction, and/or weight based d osing when appropriate to reduce radiation dose to as low as reasonably achievable (ALARA). [facility]: Dose Right [facility]: CareDose [facility]: Dose Right [facility]: Teradose 4D [facility]: [facility] RADIATION DOSE: CT Rad equipment meets quality standard of care and radiation dose reduction techniq ues were employed. CTDIvol: 6.6 - 9.9 mGy. DLP: 1288 mGy-cm.. LIMITATIONS: None. FINDINGS: AXILLAE: No adenopathy. CHEST WALL: No masses. No subcutaneous air. LUNGS: Dense consolidation and collapse in the left upper lobe persists and looks slightly progressiv e. There is additional consolidation in the left lower lobe now noted with air bronchograms. There is a new small left pleural effusion. Scattered nodules have developed in the right lung. These brendan sure up to 7 mm maximally. Present throughout all lobes on the right. PLEURA: As above. THYROID: No masses or significant asymmetry. HILAR AND MEDIASTINAL STRUCTURES: Small nodes, nonprogressive. AORTA AND GREAT VESSELS: No aneurysm. No dissection. PULMONARY ARTERIES: No identified pulmonary emboli. Study not optimized for the pulmonary arteries. HEART: No pericardial effusion. HARDWARE AND LIFELINES: None. BONES: No significant finding. OTHER: No other significant finding. IMPRESSION: 1. Progressive thoracic disease. Persistent, likely progressive collapse and consolidat ion of the left upper lobe with new left lower lobe consolidation and pleural fluid. Numerous new pu lmonary nodules scattered throughout the right lung, not seen previously. COMPARISON: As above. RADIATION DOSE: CT Rad equipment meets quality standard of care and radiation dose reduction techniq ues were employed. CTDIvol: 6.6 - 9.9 mGy. DLP: 1288 mGy-cm.mGy. TECHNIQUE: CT scan of the abdomen and pelvis performed with intravenous, without oral contrast using helical scanning technique with dynamic intravenous contrast injection. Images reviewed with lung, soft tissue and bone windows. Reconstructed coronal and sagittal MPR images reviewed. Delayed image s for evaluation of the urinary system also acquired and evaluated. All images stored on PACS. All CT scanners at this facility use dose modulation, iterative reconstruction, and/or weight based d osing when appropriate to reduce radiation dose to as low as reasonably achievable (ALARA). [facility]: Dose Right [facility]: [facility]Care [facility]: Dose Right [facility]: Teradose 4D [facility]: [facility] FINDINGS: LIVER: Normal size. No masses. No dilated ducts. SPLEEN: Calcified granulomas. PANCREAS: No masses. No significant calcifications. No adjacent inflammation or peripancreatic flui d collections. Pancreatic duct not dilated. GALLBLADDER: Surgically absent. ADRENAL GLANDS: No significant masses or asymmetry. RIGHT KIDNEY AND URETER: Stable sizable renal cyst. LEFT KIDNEY AND URETER: Mild areas of cortical scarring. No developing mass or obstruction. AORTA AND VESSELS: Atherosclerotic aorta without aneurysm or dissection. Patent major arterial branc hes. No venous clot. RETROPERITONEUM: No retroperitoneal adenopathy, hemorrhage or masses. LARGE AND SMALL BOWEL: Distal colonic diverticulosis without active inflammatory changes. No dilated small bowel loops. APPENDIX: Surgically absent. ABDOMINAL WALL: No hernia or masses. PERITONEAL CAVITY: No free air. No free fluid. No peritoneal implants or masses. PELVIS: No mass or free fluid. Normal bladder. BONES: No significant or acute findings. OTHER: No other significant finding. IMPRESSION: 1. No acute or suspicious abdominopelvic abnormality. TECHNICAL DOCUMENTATION: JOB ID: [id number] Quality ID # [id number]: Final reports with documentation of one or more dose reduction techniques (e.g., Au tomated exposure control, adjustment of the mA and/or kV according to patient size, use of iterative reconstruction technique) 2010 [employer]- All Rights Reserved
== END ==
LOC: RAD 08:32
PROVIDERS: ATTEND Internal Medicine
DX: C34.12 Malignant neoplasm of upper lobe, left bronchus or lung (principal)
CPT/HCPCS: 71260; 74177; 82565

== ENCOUNTER → 2017-05-10 | Outpatient (CLI) | payer MEDICARE, BC ==
--- NOTE | 2017-05-12 10:38 | RADIOLOGY REPORT (SQ) ---
EXAM DESCRIPTION: PET CT SKULL/THIGH COMPLETED DATE/TIME: 05/10/2017 8:25 pm REASON FOR STUDY: LUNG CANCER C34.12 MALIGNANT NEOPLASM OF UPPER LOBE, LEFT BRONCHUS OR SREE COMPARISON: PET scan dated 11/09/2016. CT scans dated 05/05/2017 and 01/28/2017. RADIONUCLIDE AND DOSE: 10.0 mCi F18 FDG The route of agent administration: Intravenous FASTING BLOOD SUGAR: 91 mg/dl CONTRAST TYPE AND DOSE: No CT contrast given. TECHNIQUE: Blood glucose level was verified. Above dose of FDG was injected intravenously. 2-D seg mented attenuation correction images were obtained from the base of the skull to the midthighs. Nonc ontrast CT images were obtained for attenuation correction and fusion with emission images. CT image s were performed without oral or intravenous contrast and are not sensitive for parenchymal lesions. A series of overlapping emission PET images were obtained. Images reviewed and manipulated at [facility] work station by the radiologist. Images stored on PACS. LIMITATIONS: None. FINDINGS: HEAD AND NECK: No areas of abnormal metabolic activity in the soft tissues of the head and neck. CHEST: Compared to the original PET scan, the primary mass in the left lung has decreased in size. C ompared to more recent chest CT, there is persistent collapse of the left upper lobe. There is suspe cted obstruction of the left upper lobe bronchus. There is a focal left hilar mass, somewhat difficu lt to visualize on CT imaging. Mean SUV value 6.02. There is a left supraclavicular lymph node at t he level of the thyroid, measuring 1 x 2 cm, with mean SUV value 8.79. There is a right precarinal l ymph node measuring 1.2 cm with mean SUV value 6.73. There is a right subcarinal lymph node measurin g 1.2 cm with mean SUV value 4.69. There are several pulmonary nodules scattered throughout both noé gs, generally measuring 1 cm or less. On PET imaging these demonstrate minimal increased activity. Lump Machine Operator nodule in the right lung has mean SUV value 1.6. Left pleural effusion seen on the re cent chest CT may be slightly larger. ABDOMEN AND PELVIS: No areas of abnormal metabolic activity in the abdomen or pelvis. Expected physi ologic activity is present in the genitourinary system and bowel. PROXIMAL LOWER EXTREMITIES: No areas of abnormal metabolic activity in the soft tissues of the lower extremities. BONES: No abnormal metabolic activity in the visualized skeleton. ADDITIONAL CT FINDINGS: Calcified granulomas in the spleen. Right renal cyst. Colonic diverticulosi s. No additional significant findings on the noncontrast CT images. OTHER: No other significant findings. IMPRESSION: 1. ABNORMAL FINDINGS IN THE CHEST DESCRIBED INCLUDING MEDIASTINAL AND LEFT SUPRACLAVICULAR ADENOPA THY. COLLAPSE OF THE LEFT UPPER LOBE LIKELY DUE TO OBSTRUCTED BRONCHUS. MULTIPLE SMALL PULMONARY NO DULES DEMONSTRATE MINIMAL ACTIVITY ON PET IMAGING. THIS IS MOST LIKELY DUE TO THE RELATIVELY SMALL S IZE. THESE ARE FELT TO BE INDICATIVE OF METASTATIC INVOLVEMENT. LEFT PLEURAL EFFUSION MAY HAVE INCR EASED SLIGHTLY SINCE THE MOST RECENT CHEST CT. 2. NO ABNORMAL METABOLIC ACTIVITY IN THE SOFT TISSUES OF THE HEAD AND NECK OR IN THE ABDOMEN OR PELVI S. INCIDENTAL CHRONIC FINDINGS ON CT ABOVE. TECHNICAL DOCUMENTATION: JOB ID: [id number] [employer]- All Rights Reserved
== END ==
LOC: RAD 14:52
PROVIDERS: ATTEND Internal Medicine
DX: C34.12 Malignant neoplasm of upper lobe, left bronchus or lung (principal)
CPT/HCPCS: 78815; A9552

== ENCOUNTER 2017-07-14 08:15 | Inpatient (IN) | payer MEDICARE, BC ==
[2017-07-14 08:41] LABS: VENOUS BLOOD BASE EXCESS 1.6 mmol/L; VENOUS BLOOD HCO3 26.1 mmol/L (20-32); VENOUS BLOOD PCO2 40.8 mmHg (35-63); VENOUS BLOOD PH 7.42 (7.30-7.42)
[2017-07-14 08:47] LABS: INTERNATIONAL RATION (INR) 0.93; PROTHROMBIN TIME 13.1 SEC (11.4-15.4)
[2017-07-14 08:48] LABS: HEMATOCRIT 36.8 % (36.0-47.0); HEMOGLOBIN 12.8 g/dL (12.0-15.5); MEAN CORPUSCULAR HEMOGLOBIN 29.1 pg (27.0-33.4); MEAN CORPUSCULAR HGB CONC 34.8 g/dL (32.0-36.0); MEAN CORPUSCULAR VOLUME 84 fl (80-97); PLATELET COUNT 337 10^3/uL (150-450); RED BLOOD COUNT 4.41 10^6/uL (3.72-5.28); RED CELL DISTRIBUTION WIDTH 19.1 % (11.5-14.0); WHITE BLOOD COUNT 10.6 10^3/uL (4.0-10.5)
[2017-07-14 09:01] LABS: ALANINE AMINOTRANSFERASE 135 U/L (9-52); ALBUMIN 4.4 g/dL (3.5-5.0); ALKALINE PHOSPHATASE 70 U/L (38-126); ANION GAP 15 (5-19); ASPARTATE AMINO TRANSFERASE 172 U/L (14-36); BILIRUBIN,DIRECT 0.7 mg/dL (0.0-0.4); BILIRUBIN,TOTAL 1.2 mg/dL (0.2-1.3); BLOOD UREA NITROGEN 10 mg/dL (7-20); CALCIUM 9.8 mg/dL (8.4-10.2); CARBON DIOXIDE 26 mmol/L (22-30); CHLORIDE 83 mmol/L (98-107); GLUCOSE 132 mg/dL (75-110); POTASSIUM 3.1 mmol/L (3.6-5.0); SODIUM 123.8 mmol/L (137-145); TOTAL PROTEIN 7.7 g/dL (6.3-8.2)
--- NOTE | 2017-07-14 09:01 | RADIOLOGY REPORT (SQ) ---
EXAM DESCRIPTION: CHEST SINGLE VIEW COMPLETED DATE/TIME: 07/14/2017 8:46 am REASON FOR STUDY: altered , chemo, COMPARISON: CT scan dated 05/05/2017 EXAM PARAMETERS: NUMBER OF VIEWS: One view. TECHNIQUE: Single frontal radiographic view of the chest acquired. RADIATION DOSE: NA LIMITATIONS: None. FINDINGS: LUNGS AND PLEURA: Collapse of the left upper lobe, a chronic finding. Vague increased den sity in the periphery of the left mid lung unchanged from previous CT which may represent radiation c hange. Pneumonia is felt to be less likely. Multiple lung nodules bilaterally consistent with metas tatic disease worse than on prior CT, largest measured 1.8 cm. No significant effusion. MEDIASTINUM AND HILAR STRUCTURES: No masses. Contour normal. HEART AND VASCULAR STRUCTURES: Heart normal in size. Normal vasculature. BONES: No acute findings. HARDWARE: None in the chest. OTHER: No other significant finding. IMPRESSION: 1. Stable left upper lobe collapse. 2. Increased density in the left mid lung laterally similar to prior CT with differential including radiation change and pneumonia. 3. Multiple metastatic foci within the lungs largest measuring 1.8 cm. TECHNICAL DOCUMENTATION: JOB ID: [id number] [employer]- All Rights Reserved Reading location - IP/workstation name: [email or web address]
[2017-07-14] MEDS: NORMAL SALINE 1000 ML 1,000 ML IV PRN ×2 (09:06→10:42)
[2017-07-14] MEDS ORDERED: POTASSIUM CHLORIDE 10 MEQ TABLET.SA PO ONE (09:09)
--- NOTE | 2017-07-14 09:12 | EKG REPORT ---
SEVERITY:- ABNORMAL ECG - SINUS TACHYCARDIA BORDERLINE LEFT AXIS DEVIATION NONSPECIFIC T ABNORMALITIES, LATERAL LEADS : Confirmed by: Delmis Garrett 14-Jul-2017 09:11:37
[2017-07-14] MEDS ORDERED: POTASSIUM CHLORIDE 20 MEQ/15 ML UDCUP PO ONE (09:20)
[2017-07-14 09:34] LABS: ABSOLUTE LYMPHOCYTES# (MANUAL) 1.1 10^3/uL (0.5-4.7); ABSOLUTE MONOCYTES # (MANUAL) 0.1 10^3/uL (0.1-1.4); ABSOLUTE NEUTROPHILS# (MANUAL) 9.3 10^3/uL (1.7-8.2); BASOPHILS % (MANUAL) 1 % (0-2); EOSINOPHILS % (MANUAL) 0 % (0-6); LYMPHOCYTES % (MANUAL) 10 % (13-45); MONOCYTES % (MANUAL) 1 % (3-13); SEGMENTED NEUTROPHILS % (MAN) 88 % (42-78); TOTAL CELLS COUNTED 100
[2017-07-14 09:35] LABS: TOXIC GRANULATION 1+; TOXIC VACUOLATION PRESENT
[2017-07-14 09:38] LABS: ANISOCYTOSIS 2+
[2017-07-14 09:43] LABS: POIKILOCYTOSIS 1+
[2017-07-14 09:45] LABS: OVALOCYTES 1+
[2017-07-14 09:59] LABS: PLATELET COMMENT ADEQUATE
--- NOTE | 2017-07-14 10:10 | RADIOLOGY REPORT (SQ) ---
EXAM DESCRIPTION: CT HEAD COMBO COMPLETED DATE/TIME: 07/14/2017 9:45 am REASON FOR STUDY: lung ca, confusion COMPARISON: None. TECHNIQUE: Axial images acquired through the brain without and with intravenous contrast. Images re viewed with bone, brain and subdural windows. Images stored on PACS. All CT scanners at this facility use dose modulation, iterative reconstruction, and/or weight based d osing when appropriate to reduce radiation dose to as low as reasonably achievable (ALARA). [facility]: Dose Right [facility]: CareDose [facility]: Dose Right [facility]: Teradose 4D [facility]: Framed Data CONTRAST TYPE AND DOSE: contrast/concentration: Isovue 370.00 mg/ml; Total Contrast Delivered: 50.0 ml; Total Saline Delivered: 50.0 ml RENAL FUNCTION: GFR > 60. RADIATION DOSE: CT Rad equipment meets quality standard of care and radiation dose reduction techniq ues were employed. CTDIvol: 64.6 mGy. DLP: 2843 mGy-cm.. LIMITATIONS: Motion artifact. FINDINGS: VENTRICLES: Normal size and contour. CEREBRUM: Ring-enhancing lesions in the left parietal lobe and right frontal lobe, largest left parie fransico lobe 4.5 x 3.7 cm which is extra-axial. There is associated vasogenic edema. No midline shift. No hemorrhage. CEREBELLUM: No masses. No hemorrhage. No alteration of density. No evidence for acute infarction. No enhancing lesions. EXTRA-AXIAL SPACES: See above. ORBITS AND GLOBE: No intra- or extraconal masses. Normal contour of globe without masses. CALVARIUM: No fracture. PARANASAL SINUSES: No fluid or mucosal thickening. SOFT TISSUES: No mass or hematoma. OTHER: No other significant finding. IMPRESSION: Brain metastasis. EVIDENCE OF ACUTE STROKE: NO. TECHNICAL DOCUMENTATION: JOB ID: [id number] Quality ID # [id number]: Final reports with documentation of one or more dose reduction techniques (e.g., Au tomated exposure control, adjustment of the mA and/or kV according to patient size, use of iterative reconstruction technique) 2010 [employer]- All Rights Reserved Reading location - IP/workstation name: [email or web address]
[2017-07-14] MEDS ORDERED: DEXAMETHASONE SOD PHOS INJ 10 MG/1 ML VIAL IV ONE (10:13)
--- NOTE | 2017-07-14 10:14 | ER Document Report ---
ED General - General Chief Complaint: Altered Mental Status Stated Complaint: CONFUSION Time Seen by Provider: 07/14/17 08:23 Mode of Arrival: Medic Information source: Patient Notes: 67-year-old female history of lung CA presents with family with confusion over the past week. Patient herself notes that she has been confused, she denies any fevers or chills, heart rate was noted to be elevated, patient has not been vomiting but does note decreased appetite Patient does receive chemotherapy TRAVEL OUTSIDE OF THE [place] IN LAST 30 DAYS: No - HPI Onset: Last week Onset/Duration: Persistent Quality of pain: No pain, Sharp - Headache Severity: Moderate Pain Level: 3 Associated symptoms: Headache, Nausea Exacerbated by: Denies Relieved by: Denies Similar symptoms previously: Yes Recently seen / treated by doctor: Yes - Related Data Allergies/Adverse Reactions: Penicillins Allergy (Verified 07/14/17 09:01) Past Medical History - Social History Smoking Status: Former Smoker Cigarette use (# per day): No Chew tobacco use (# tins/day): No Smoking Education Provided: No Frequency of alcohol use: None Drug Abuse: None Family History: Reviewed & Not Pertinent Patient has suicidal ideation: No Patient has homicidal ideation: No - Past Medical History Cardiac Medical History: Reports: Hx Hypertension Endocrine Medical History: Reports: Hx Diabetes Mellitus Type 1, Hx Diabetes Mellitus Type 2 Renal/ Medical History: Denies: Hx Peritoneal Dialysis Malignancy Medical History: Reports: Hx Lung Cancer Psychiatric Medical History: Denies: Hx Depression Past Surgical History: Reports: Hx Cholecystectomy, Hx Hysterectomy Review of Systems - Review of Systems Notes: REVIEW OF SYSTEMS: CONSTITUTIONAL : Denies fever, chills, or sweats. Denies recent illness. EENT: Denies eye, ear, throat, or mouth pain or symptoms. Denies nasal or sinus congestion or discharge. Denies throat, tongue, or mouth swelling or difficulty swallowing. CARDIOVASCULAR: Denies chest pain. Denies palpitations or racing or irregular heart beat. Denies ankle edema. RESPIRATORY: Denies cough, cold, or chest congestion. Denies shortness of breath, difficulty breathing, or wheezing. GASTROINTESTINAL: Admits to nausea GENITOURINARY: Denies difficulty urinating, painful urination, burning, frequency, blood in urine, or discharge. FEMALE GENITOURINARY: Denies vaginal bleeding, heavy or abnormal periods, irregular periods. Denies vaginal discharge or odor. MUSCULOSKELETAL: Denies back or neck pain or stiffness. Denies joint pain or swelling. SKIN: Denies rash, lesions or sores. HEMATOLOGIC : Denies easy bruising or bleeding. LYMPHATIC: Denies swollen, enlarged glands. NEUROLOGICAL: Admits to headache and confusion PSYCHIATRIC: Denies anxiety or stress. Denies depression, suicidal ideation, or homicidal ideation. ALL OTHER SYSTEMS REVIEWED AND NEGATIVE. PHYSICAL EXAMINATION: GENERAL: Well-appearing, well-nourished and in no acute distress. HEAD: Atraumatic, normocephalic. EYES: Pupils equal round and reactive to light, extraocular movements intact, conjunctiva are normal. ENT: Nares patent, oropharynx clear without exudates. Moist mucous membranes. NECK: Normal range of motion, supple without lymphadenopathy LUNGS: Inspiratory expiratory wheezing all throughout HEART: Tachycardic ABDOMEN: Soft, nontender, nondistended abdomen. No guarding, no rebound. No masses appreciated. Female : deferred Musculoskeletal: Normal range of motion, no pitting or edema. No cyanosis. NEUROLOGICAL: Cranial nerves grossly intact. Normal speech, normal gait. Normal sensory, motor exams confusion noted PSYCH: Normal mood, normal affect. SKIN: Warm, Dry, normal turgor, no rashes or lesions noted. Dictation was performed using [employer] voice recognition software Physical Exam - Vital signs Vitals: Resp Pulse Ox 21 H 94 07/14/17 08:27 07/14/17 08:27 Course - Re-evaluation Re-evalutation: Initial presentation is concerning for sepsis, patient was noted to be tachycardic but she was afebrile, she denies any obvious signs of infection, more concerning is the patient's confusion which is probably secondary to brain metastasis versus electrolyte abnormality 07/14/17 10:14 brain metastesis noted, Dr Jeff tamayo, decadron given. 07/14/17 10:[address], ordered for tomorrow since contrast already given, he will ocnsult Dr White. 07/14/17 12:07 Patient will be admitted for hyponatremia confusion brain metastasis - Vital Signs Vital signs: Temp Pulse Resp BP Pulse Ox 34 H 157/97 H 96 07/14/17 11:00 07/14/17 09:01 07/14/17 11:00 - Laboratory Result Diagrams: 07/14/17 08:25 07/14/17 08:25 Laboratory results interpreted by me: 07/14/17 07/14/17 08:25 08:25 WBC 10.6 H RDW 19.1 H Seg Neuts % (Manual) 88 H Lymphocytes % (Manual) 10 L Monocytes % (Manual) 1 L Abs Neuts (Manual) 9.3 H Sodium 123.8 L Potassium 3.1 L Chloride 83 L Glucose 132 H Direct Bilirubin 0.7 H AST 172 H ALT 135 H - Diagnostic Test Radiology reviewed: Image reviewed, Reports reviewed - Brain metastasis Critical Care Note - Critical Care Note Total time excluding time spent on procedures (mins): 46 Comments: 46 minutes of critical care time spent in direct contact evaluating and reevaluating the patient, treating symptoms, reviewing labs and studies and speaking with family and consultants excluding any procedures Discharge - Discharge Clinical Impression: Brain metastases, Hypokalemia, Hyponatremia Lung cancer Qualifiers: Laterality: unspecified laterality Lung location: unspecified part of lung Qualified Code(s): C34.90 - Malignant neoplasm of unspecified part of unspecified bronchus or lung Condition: Fair Disposition: ADMITTED INPATIENT Admitting Provider: Hospitalist Unit Admitted: [facility]
[2017-07-14] MEDS ORDERED: FENTANYL CITRATE INJ/PF 100 MCG/2 ML AMPUL IV ONE (10:23)
[2017-07-14] MEDS ORDERED: POTASSI CL 40 MEQ/NS 1L 1,000 ML IV ONE (10:23)
[2017-07-14] MEDS ORDERED: LEVETIRACETAM 1500 MG/NACL-ISO 1,500 MG/100 ML RTUPB IV ONE (10:34)
[2017-07-14] MEDS ORDERED: DEXTROSE 50%-WATER 25 GM/50 ML DISP.SYRIN IV PRN ×4 (10:58→11:09)
[2017-07-14] MEDS ORDERED: IPRATROPIUM/ALBUTEROL 0.5-2.5 MG/3 ML AMPUL NEB PRN (10:58)
[2017-07-14] MEDS ORDERED: DEXTROSE 40% GEL 15 GM TUBE PO PRN ×4 (10:58→11:09)
[2017-07-14] MEDS ORDERED: GLUCAGON,HUMAN RECOMB 1 MG INJ SUBCUT PRN (10:58)
[2017-07-14] MEDS ORDERED: ACETAMINOPHEN 325 MG TABLET PO PRN (10:58)
[2017-07-14] MEDS ORDERED: GLUCAGON,HUMAN RECOMB 1 MG INJ IM PRN (11:09)
--- NOTE | 2017-07-14 11:23 | PDOC H&P ---
History of Present Illness Admission Date/PCP: 07/14/17 10:48 HERIBERTO BROWNE PA-C Patient complains of: Confusion History of Present Illness: ANUP BARRIOS is a 67 year old female presented to the emergency room with complaint of confusion. Patient's states that patient has had problems with memory for approximately 2 weeks. also reports that patient has not been eating. reports that patient received her chemo treatment on Thursday. reports the patient is followed by Dr. Aguilar. Patient also complains of having severe headaches 5 out of 5 at times patient denies any fever. Patient does admit to having nausea. Past Medical History Cardiac Medical History: Reports: Hypertension Endocrine Medical History: Reports: Diabetes Mellitus Type 2 Malignancy Medical History: Reports: Lung Cancer Psychiatric Medical History: Denies: Depression Past Surgical History Past Surgical History: Reports: Cholecystectomy, Hysterectomy Social History Smoking Status: Former Smoker Frequency of Alcohol Use: None Hx Recreational Drug Use: No Drugs: None Hx Prescription Drug Abuse: No - Advance Directive Resuscitation Status: Full Code Family History Family History: Reviewed & Not Pertinent Parental Family History Reviewed: Yes Children Family History Reviewed: Yes Sibling(s) Family History Reviewed.: Yes Medication/Allergy Home Medications: Amlodipine Besylate [Norvasc 10 mg Tablet] 10 mg PO DAILY 12/27/16 Baclofen [Baclofen 10 mg Tablet] 10 mg PO Q6 PRN 12/27/16 Gabapentin [Neurontin] 600 mg PO DAILY 12/27/16 Metoprolol Succinate [Toprol Xl 50 mg Tab.sr] 50 mg PO DAILY 12/27/16 Ondansetron HCl 8 mg PO Q8 PRN 12/27/16 Promethazine HCl [Phenergan 25 mg Tablet] 25 mg PO Q6 PRN 12/27/16 Sitagliptin Phos/Metformin HCl [Janumet 50-1,000 mg Tablet] 1 each PO QAM Cefuroxime Axetil [Ceftin 500 mg Tablet] 1 tab PO BID #24 tablet 12/29/16 Allergies/Adverse Reactions: Penicillins Allergy (Verified 07/14/17 09:01) Review of Systems Constitutional: PRESENT: headache(s), weakness Eyes: ABSENT: visual disturbances Ears: ABSENT: hearing changes Cardiovascular: ABSENT: chest pain, dyspnea on exertion, edema, orthropnea, palpitations Respiratory: ABSENT: cough, hemoptysis Gastrointestinal: ABSENT: abdominal pain, constipation, diarrhea, hematemesis, hematochezia, nausea, vomiting Genitourinary: ABSENT: dysuria, hematuria Musculoskeletal: ABSENT: joint swelling Neurological: PRESENT: lack of coordination, memory loss. ABSENT: abnormal gait , abnormal speech, confusion, dizziness, syncope Psychiatric: ABSENT: anxiety, depression, homidical ideation, suicidal ideation Endocrine: ABSENT: cold intolerance, heat intolerance, polydipsia, polyuria Hematologic/Lymphatic: ABSENT: easy bleeding, easy bruising Physical Exam Vital Signs: Temp Pulse Resp BP Pulse Ox 34 H 157/97 H 96 07/14/17 11:00 07/14/17 09:01 07/14/17 11:00 General appearance: PRESENT: no acute distress, well-developed, well-nourished Head exam: PRESENT: atraumatic, normocephalic Eye exam: PRESENT: conjunctiva pink, EOMI. ABSENT: scleral icterus Ear exam: PRESENT: normal external ear exam Mouth exam: PRESENT: moist, tongue midline Neck exam: ABSENT: carotid bruit, JVD, lymphadenopathy, thyromegaly Respiratory exam: PRESENT: clear to auscultation mike. ABSENT: rales, rhonchi, wheezes Cardiovascular exam: PRESENT: RRR. ABSENT: diastolic murmur, rubs, systolic murmur Pulses: PRESENT: normal dorsalis pedis pul Vascular exam: PRESENT: normal capillary refill GI/Abdominal exam: PRESENT: normal bowel sounds, soft. ABSENT: distended, guarding, mass, organolmegaly, rebound, tenderness Rectal exam: PRESENT: deferred Extremities exam: ABSENT: calf tenderness, clubbing, pedal edema Neurological exam: PRESENT: alert, awake, oriented to person, oriented to place , oriented to time Psychiatric exam: PRESENT: appropriate affect, normal mood. ABSENT: homicidal ideation, suicidal ideation Skin exam: PRESENT: dry, intact, warm. ABSENT: cyanosis, rash Results Impressions: Chest X-Ray 07/14/17 08:24 IMPRESSION: 1. Stable left upper lobe collapse. 2. Increased density in the left mid lung laterally similar to prior CT with differential including radiation change and pneumonia. 3. Multiple metastatic foci within the lungs largest measuring 1.[address] 07/14/17 09:10 IMPRESSION: Brain metastasis. EVIDENCE OF ACUTE STROKE: NO. Assessment & Plan - Diagnosis (1) Brain metastasis Is this a current diagnosis for this admission?: Yes Plan: We will place patient on 8 mg of Decadron daily. Will obtain MRI of brain. Will consult Oncology. Expect patient to demonstrate improvement in the next 24 -48 hours once the swelling has decreased. Oncology to contact red on to see if they can do radiation to brain lesions. Will await oncology's recommendations (2) Elevated LFTs Is this a current diagnosis for this admission?: Yes Plan: Check ultrasound of liver. Patient's LFTs are elevated during this admission. Could be a combination of fatty liver disease complicated by chemo. (3) Debility Is this a current diagnosis for this admission?: Yes Plan: Secondary to brain metastasis of lung cancer: We will write for PT OT once patient's mentation has improved. 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 (5) Diabetes type 2, controlled Is this a current diagnosis for this admission?: Yes Plan: Place patient on sliding scale insulin. Patient will receive high-dose steroids expect patient's blood sugars to be elevated and will have to make adjustments to insulin protocol. (6) Hypokalemia Is this a current diagnosis for this admission?: Yes Plan: We will give potassium replacement. (7) Lung cancer Qualifiers: Is this a current diagnosis for this admission?: Yes Plan: Per oncology. Patient is receiving chemo as outpatient (8) DVT prophylaxis Is this a current diagnosis for this admission?: Yes Plan: SCDs - Time Time Spent: 30 to 50 Minutes
[2017-07-14 11:50] LABS: APPEARANCE,URINE CLEAR; BILIRUBIN,URINE NEGATIVE (NEGATIVE); COLOR,URINE STRAW; GLUCOSE, URINE NEGATIVE (NEGATIVE); KETONES,URINE 20 mg/dL (NEGATIVE); LEUKOCYTE ESTERASE,URINE NEGATIVE (NEGATIVE); NITRITE,URINE NEGATIVE (NEGATIVE); PROTEIN,URINE NEGATIVE (NEGATIVE); URINE SPECIFIC GRAVITY 1.012; UROBILINOGEN,URINE NEGATIVE mg/dL (<2.0)
--- NOTE | 2017-07-14 13:46 | RADIOLOGY REPORT (SQ) ---
EXAM DESCRIPTION: MRI HEAD COMBO COMPLETED DATE/TIME: 07/14/2017 1:15 pm REASON FOR STUDY: brain metas COMPARISON: Brain CT scan dated 07/14/2017 and MRI of the brain dated October 2016 TECHNIQUE: Multiplanar imaging includes noncontrasted T1, T2, FLAIR, Diffusion with ADC map and post gadolinium contrast T1 sequences. Images stored on PACS. CONTRAST TYPE AND DOSE: 10 mL MultiHance RENAL FUNCTION: GFR > 60. LIMITATIONS: None. FINDINGS: ANATOMY: No anomalies. Normal vascular flow voids. Pituitary fossa normal. CSF SPACES: Atrophy-induced prominence of CSF spaces and ventricles. CEREBRUM: High-signal intensity lesions scattered throughout the white matter on FLAIR imaging with d istribution suggesting chronic micro-vascular ischemic change. Rim enhancing mass is identified in t he right frontal region measuring 2.1 x 2.3 cm in diameters and a 2nd rim enhancing mass is identifie d in the left posterior parietal region measuring 4.1 x 3.8 cm in diameters which were identified on the CT scan and are consistent with metastatic disease. There is adjacent vasogenic edema in the lef t parietal region. There is some minimal compression of the atria of the left lateral ventricle. Ot herwise no significant mass effect is seen. POSTERIOR FOSSA: No signal alteration. No hemorrhage. No edema, masses, or mass effect. Internal olaf tory canals, cerebello-pontine angles, mastoids normal. No enhancing lesions. ORBITS: No masses. Globes normal. PARANASAL SINUSES: No fluid levels. Mucosa normal. DIFFUSION: Normal. No evidence of recent infarct. OTHER: No other significant finding. IMPRESSION: ATROPHY AND CHRONIC MICRO-VASCULAR ISCHEMIC CHANGES. Rim enhancing masses in the right frontal lobe and left parietal lobe as noted above consistent with metastatic disease. Other finding s as noted above EVIDENCE OF ACUTE STROKE: NO. TECHNICAL DOCUMENTATION: JOB ID: [id number] [employer]- All Rights Reserved Reading location - IP/workstation name: [email or web address]
--- NOTE | 2017-07-14 14:08 | RADIOLOGY REPORT (SQ) ---
EXAM DESCRIPTION: U/S ABDOMEN COMPLETE W/O DOP COMPLETED DATE/TIME: 07/14/2017 1:41 pm REASON FOR STUDY: elevated LFTs COMPARISON: None. TECHNIQUE: Dynamic and static grayscale images acquired of the abdomen and recorded on PACS. Additio nal selected color Doppler and spectral images recorded. LIMITATIONS: None. FINDINGS: PANCREAS: No masses. Visualized pancreatic duct normal caliber. LIVER: Echotexture is coarse with increased echogenicity consistent with fatty infiltration. LIVER VASCULATURE: Normal directional flow of the main portal vein and hepatic veins. GALLBLADDER: Surgically absent. ULTRASOUND-DETECTED JIMÉNEZ'S SIGN: Not applicable. INTRAHEPATIC DUCTS AND COMMON DUCT: CBD and intrahepatic ducts normal caliber. No filling defects. INFERIOR VENA CAVA: Normal flow. AORTA: No aneurysm. RIGHT KIDNEY: Normal size. 8 cm cyst. No solid or suspicious masses. No hydronephrosis. No calcific ations. LEFT KIDNEY: Normal size. Normal echogenicity. No solid or suspicious masses. No hydronephrosis. No calcifications. SPLEEN:Normal size. No solid masses. PERITONEAL AND PLEURAL SPACES: No ascites or effusions. OTHER: No other significant finding. IMPRESSION: Fatty liver. No acute findings. TECHNICAL DOCUMENTATION: JOB ID: [id number] [employer]- All Rights Reserved Reading location - IP/workstation name: [email or web address]
[2017-07-14] MEDS: POTASSI CL 20 MEQ/50 ML RIDER 20 MEQ/50 ML RTUPB IV SCH ×2 (14:15→16:49)
[2017-07-14] MEDS ORDERED: SODIUM CHLORIDE 1 GM TABLET PO SCH (18:00)
[2017-07-14] MEDS ORDERED: HYDRALAZINE HCL INJ/PF 20 MG/1 ML SDV IV PRN (18:14)
[2017-07-14] MEDS: PANTOPRAZOLE SODIUM 40 MG VIAL IV SCH (21:13)
[2017-07-15 04:42] LABS: ABSOLUTE LYMPHOCYTES (AUTO) 0.9 10^3/uL (0.5-4.7); ABSOLUTE MONOCYTES (AUTO) 0.3 10^3/uL (0.1-1.4); ABSOLUTE NEUT (AUTO) 6.7 10^3/uL (1.7-8.2); BASOPHILS % (AUTO) 0.2 % (0-2); HEMATOCRIT 32.2 % (36.0-47.0); HEMOGLOBIN 11.2 g/dL (12.0-15.5); LYMPHOCYTES % (AUTO) 11.3 % (13-45); MEAN CORPUSCULAR HGB CONC 34.8 g/dL (32.0-36.0); MEAN CORPUSCULAR VOLUME 84 fl (80-97); MONOCYTES % (AUTO) 3.3 % (3-13); PLATELET COUNT 283 10^3/uL (150-450); RED BLOOD COUNT 3.85 10^6/uL (3.72-5.28); RED CELL DISTRIBUTION WIDTH 19.3 % (11.5-14.0); SEGMENTED NEUTROPHILS % (AUTO) 85.2 % (42-78); TOTAL CELLS COUNTED % (AUTO) 100 %; WHITE BLOOD COUNT 7.9 10^3/uL (4.0-10.5)
[2017-07-15 05:04] LABS: ALANINE AMINOTRANSFERASE 120 U/L (9-52); ALBUMIN 3.7 g/dL (3.5-5.0); ALKALINE PHOSPHATASE 62 U/L (38-126); ANION GAP 12 (5-19); ASPARTATE AMINO TRANSFERASE 139 U/L (14-36); BILIRUBIN,DIRECT 0.6 mg/dL (0.0-0.4); BILIRUBIN,TOTAL 0.7 mg/dL (0.2-1.3); BLOOD UREA NITROGEN 11 mg/dL (7-20); CALCIUM 9.5 mg/dL (8.4-10.2); CARBON DIOXIDE 22 mmol/L (22-30); CHLORIDE 101 mmol/L (98-107); GLUCOSE 98 mg/dL (75-110); PHOSPHORUS 2.8 mg/dL (2.5-4.5); POTASSIUM 3.5 mmol/L (3.6-5.0); SODIUM 134.5 mmol/L (137-145); TOTAL PROTEIN 6.5 g/dL (6.3-8.2)
[2017-07-15 05:18] LABS: FREE T4 (FREE THYROXINE) 2.69 ng/dL (0.78-2.19)
[2017-07-15 05:32] LABS: THYROID STIMULATING HORMONE 0.34 uIU/mL (0.47-4.68)
[2017-07-15] MEDS: DEXTROSE 5%-1/2 NORMAL SALINE 1,000 ML IV PRN ×2 (08:56→20:22)
[2017-07-15] MEDS: DEXAMETHASONE SOD PHOSPHATE INJ 4 MG/1 ML VIAL IV SCH ×2 (08:56→20:11)
--- NOTE | 2017-07-15 08:59 | PDOC CONSULTATION ---
Consultation Consult Date: 07/15/17 Attending physician:: RAMAN MANCILLA Consult reason:: New brain metastasis, stage IV lung cancer History of Present Illness Admission Date/PCP: 07/14/17 10:48 HERIBERTO BROWNE PA-C Patient complains of: Confusion, weakness, balance issues History of Present Illness: 67-year-old female with known history of stage IV lung cancer who most recently was on third line chemotherapy, she unfortunately progressed through nikolai doublet, immunotherapy, and now single agent Gemzar. In the last week she has had increasing weakness, confusion, and balance issues, we have set her up for an outpatient MRI as well as restaging CT, but in the interim she became very lethargic, weak, confused, and she was brought into the ED. While in the ED she had a CT which indicated brain metastasis, this was followed by MRI which indicated a mass in the right frontal lesion 2.3 cm, mass in the left parietal region 4.1 cm, quite a bit of vasogenic edema. We gave her steroids yesterday, today she does seem hungry, she is sitting up in a chair, and she seems more oriented. She is hungry. I had a long discussion with them about the MRI results, and next steps of care. We spent greater than 70 minutes in discussion Past Medical History Cardiac Medical History: Reports: Hypertension Endocrine Medical History: Reports: Diabetes Mellitus Type 1, Diabetes Mellitus Type 2 Malignancy Medical History: Reports: Lung Cancer Psychiatric Medical History: Denies: Depression Past Surgical History Past Surgical History: Reports: Cholecystectomy, Hysterectomy Social History Smoking Status: Former Smoker Number of Years Smokin Last Time Smoked: 2003 Frequency of Alcohol Use: None Hx Recreational Drug Use: No Drugs: None Hx Prescription Drug Abuse: No - Advance Directive Resuscitation Status: Full Code Family History Family History: Reviewed & Not Pertinent Parental Family History Reviewed: Yes Children Family History Reviewed: Yes Sibling(s) Family History Reviewed.: Yes Medication/Allergy Home Medications: Baclofen [Baclofen 10 mg Tablet] 10 mg PO Q6HP PRN 07/14/17 Hydrochlorothiazide [Hydrodiuril 12.5 mg Capsule] 12.5 mg PO DAILY 07/14/17 Metoprolol Succinate [Toprol Xl 50 mg Tab.sr] 50 mg PO DAILY 07/14/17 Ondansetron HCl [Zofran 8 mg Tablet] 8 mg PO Q8HP PRN 07/14/17 Promethazine HCl [Phenergan 25 mg Tablet] 25 mg PO Q6HP PRN 07/14/17 Sitagliptin Phos/Metformin HCl [Janumet 50-1,000 mg Tablet] 1 tab PO DAILY 07/14 Allergies/Adverse Reactions: Penicillins Allergy (Verified 07/14/17 09:01) Review of Systems Constitutional: PRESENT: anorexia, fatigue, weakness, weight loss Nose, Mouth, and Throat: PRESENT: headache(s), vertigo Cardiovascular: ABSENT: chest pain, dyspnea on exertion, edema, orthropnea, palpitations Gastrointestinal: ABSENT: abdominal pain, constipation, diarrhea, hematemesis, hematochezia, nausea, vomiting Neurological: PRESENT: abnormal gait, abnormal movements, frequent falls, lack of coordination, memory loss, vertigo, weakness Physical Exam Vital Signs: Temp Pulse Resp BP Pulse Ox 98.7 F 86 16 128/68 H 92 07/15/17 07:28 07/15/17 07:28 07/15/17 07:28 07/15/17 07:28 07/15/17 07:28 Intake & Output 07/14/17 07/15/17 07/16/17 06:59 06:59 06:59 Intake Total 20 Balance 20 Weight 70.6 kg General appearance: PRESENT: no acute distress, well-developed, well-nourished Head exam: PRESENT: atraumatic, normocephalic Eye exam: PRESENT: conjunctiva pink, EOMI, PERRLA. ABSENT: scleral icterus Ear exam: PRESENT: normal external ear exam Mouth exam: PRESENT: moist, tongue midline Neck exam: ABSENT: carotid bruit, JVD, lymphadenopathy, thyromegaly Respiratory exam: PRESENT: clear to auscultation mike. ABSENT: rales, rhonchi, wheezes Cardiovascular exam: PRESENT: RRR. ABSENT: diastolic murmur, rubs, systolic murmur Pulses: PRESENT: normal dorsalis pedis pul Vascular exam: PRESENT: normal capillary refill GI/Abdominal exam: PRESENT: normal bowel sounds, soft. ABSENT: distended, guarding, mass, organolmegaly, rebound, tenderness Rectal exam: PRESENT: deferred Extremities exam: PRESENT: full ROM. ABSENT: calf tenderness, clubbing, pedal edema Neurological exam: PRESENT: alert, awake, oriented to person, oriented to place , oriented to time, oriented to situation, CN II-XII grossly intact. ABSENT: motor sensory deficit Psychiatric exam: PRESENT: appropriate affect, normal mood. ABSENT: homicidal ideation, suicidal ideation Skin exam: PRESENT: dry, intact, warm. ABSENT: cyanosis, rash Results Laboratory Results: 07/15/17 04:26 07/15/17 04:26 07/14/17 07/15/17 07/15/17 11:23 04:26 04:26 WBC 7.9 RBC 3.85 Hgb 11.2 L Hct 32.2 L MCV 84 MCH 29.0 MCHC 34.8 RDW 19.3 H Plt Count 283 Seg Neutrophils % 85.2 H Lymphocytes % 11.3 L Monocytes % 3.3 Eosinophils % 0.0 Basophils % 0.2 Absolute Neutrophils 6.7 Absolute Lymphocytes 0.9 Absolute Monocytes 0.3 Absolute Eosinophils 0.0 Absolute Basophils 0.0 Sodium 134.5 L Potassium 3.5 L Chloride 101 Carbon Dioxide 22 Anion Gap 12 BUN 11 Creatinine 0.73 Est GFR ( Amer) > 60 Est GFR (Non-Af Amer) > 60 Glucose 98 Calcium 9.5 Phosphorus 2.8 Magnesium 1.8 Total Bilirubin 0.7 AST 139 H ALT 120 H Alkaline Phosphatase 62 Total Protein 6.5 Albumin 3.7 TSH Free T4 Urine Color STRAW Urine Appearance CLEAR Urine pH 7.0 Ur Specific [place] 1.012 Urine Protein NEGATIVE Urine Glucose (UA) NEGATIVE Urine Ketones 20 H Urine Blood MODERATE H Urine Nitrite NEGATIVE Ur Leukocyte Esterase NEGATIVE Urine WBC (Auto) 1 07/15/17 04:26 WBC RBC Hgb Hct MCV MCH MCHC RDW Plt Count Seg Neutrophils % Lymphocytes % Monocytes % Eosinophils % Basophils % Absolute Neutrophils Absolute Lymphocytes Absolute Monocytes Absolute Eosinophils Absolute Basophils Sodium Potassium Chloride Carbon Dioxide Anion Gap BUN Creatinine Est GFR ( Amer) Est GFR (Non-Af Amer) Glucose Calcium Phosphorus Magnesium Total Bilirubin AST ALT Alkaline Phosphatase Total Protein Albumin TSH 0.34 L Free T4 2.69 H Urine Color Urine Appearance Urine pH Ur Specific [place] Urine Protein Urine Glucose (UA) Urine Ketones Urine Blood Urine Nitrite Ur Leukocyte Esterase Urine WBC (Auto) Impressions: Abdomen Ultrasound 07/14/17 00:00 IMPRESSION: Fatty liver. No acute findings. Head MRI 07/14/17 00:00 IMPRESSION: ATROPHY AND CHRONIC MICRO-VASCULAR ISCHEMIC CHANGES. Rim enhancing masses in the right frontal lobe and left parietal lobe as noted above consistent with metastatic disease. Other findings as noted above EVIDENCE OF ACUTE STROKE: NO. Chest X-Ray 07/14/17 08:24 IMPRESSION: 1. Stable left upper lobe collapse. 2. Increased density in the left mid lung laterally similar to prior CT with differential including radiation change and pneumonia. 3. Multiple metastatic foci within the lungs largest measuring 1.[address] 07/14/17 09:10 IMPRESSION: Brain metastasis. EVIDENCE OF ACUTE STROKE: NO. Status: Image reviewed by me Assessment & Plan - Diagnosis (1) Lung cancer Qualifiers: Laterality: left Lung location: upper lobe of lung Qualified Code(s): C34.12 - Malignant neoplasm of upper lobe, left bronchus or lung Is this a current diagnosis for this admission?: Yes Plan: Patient with lung cancer, stage IV, 3 lines of chemotherapy, no further chemotherapy would be beneficial for her, we discussed treatment for the brain metastasis with brain radiation versus using only steroids, they are thinking about this, in the interim I will get community hospice, to see her and plan for home hospice. I discussed whether or not to rescan her, but family really wants to know what the status of the disease in the lungs and abdomen are, I believe this is necessary to see what prognosis will hold, we will order staging CT today. (2) Brain metastasis Is this a current diagnosis for this admission?: Yes Plan: The next general step would be whole brain radiation, however patient and family is unsure of whether she wants to do that, they will talk about it over the next 24 hours and make a decision, if they decide I will put in a consult for radiation oncology. - Time Time Spent: Greater than 70 Minutes - Inpatient Certification Based on my medical assessment, after consideration of the patient's comorbidities, presenting symptoms, or acuity I expect that the services needed warrant INPATIENT care.: Yes I certify that my determination is in accordance with my understanding of Medicare's requirements for reasonable and necessary INPATIENT services [42 CFR 412.3e].: Yes Medical Necessity: Failure to Improve With Outpatient Therapy, Need For Continuous Telemetry Monitoring, Need for Neurological Checks, Risk of Complication if Not Cared For in Hospital
--- NOTE | 2017-07-15 09:47 | PDOC PROGRESS REPORT ---
Subjective Progress Note for:: 07/15/17 Subjective:: She states that she is feeling much better. Patient states that she is thirsty and would like something to drink. Reason For Visit: ACUTE ENCEPHALOPATHY SECONDARY TO BRAIN METASTASIS Physical Exam Vital Signs: Temp Pulse Resp BP Pulse Ox 98.7 F 86 16 128/68 H 92 07/15/17 07:28 07/15/17 07:28 07/15/17 07:28 07/15/17 07:28 07/15/17 07:28 Intake & Output 07/14/17 07/15/17 07/16/17 06:59 06:59 06:59 Intake Total 20 Balance 20 Weight 70.6 kg General appearance: PRESENT: no acute distress, well-developed, well-nourished Head exam: PRESENT: atraumatic, normocephalic Eye exam: PRESENT: conjunctiva pink, EOMI. ABSENT: scleral icterus Ear exam: PRESENT: normal external ear exam Mouth exam: PRESENT: moist, tongue midline Neck exam: ABSENT: carotid bruit, JVD, lymphadenopathy, thyromegaly Respiratory exam: PRESENT: clear to auscultation mike. ABSENT: rales, rhonchi, wheezes Cardiovascular exam: PRESENT: RRR. ABSENT: diastolic murmur, rubs, systolic murmur Pulses: PRESENT: normal dorsalis pedis pul Vascular exam: PRESENT: normal capillary refill GI/Abdominal exam: PRESENT: normal bowel sounds, soft. ABSENT: distended, guarding, mass, organolmegaly, rebound, tenderness Rectal exam: PRESENT: deferred Extremities exam: PRESENT: full ROM. ABSENT: calf tenderness, clubbing, pedal edema Neurological exam: PRESENT: alert, awake, oriented to person, other - Patient states that she is at [facility] states that the years 1984, and states that the president is Trump. Skin exam: PRESENT: dry, intact, warm. ABSENT: cyanosis, rash Results Laboratory Results: 07/15/17 04:26 07/15/17 04:26 07/14/17 07/15/17 07/15/17 11:23 04:26 04:26 WBC 7.9 RBC 3.85 Hgb 11.2 L Hct 32.2 L MCV 84 MCH 29.0 MCHC 34.8 RDW 19.3 H Plt Count 283 Seg Neutrophils % 85.2 H Lymphocytes % 11.3 L Monocytes % 3.3 Eosinophils % 0.0 Basophils % 0.2 Absolute Neutrophils 6.7 Absolute Lymphocytes 0.9 Absolute Monocytes 0.3 Absolute Eosinophils 0.0 Absolute Basophils 0.0 Sodium 134.5 L Potassium 3.5 L Chloride 101 Carbon Dioxide 22 Anion Gap 12 BUN 11 Creatinine 0.73 Est GFR ( Amer) > 60 Est GFR (Non-Af Amer) > 60 Glucose 98 Calcium 9.5 Phosphorus 2.8 Magnesium 1.8 Total Bilirubin 0.7 AST 139 H ALT 120 H Alkaline Phosphatase 62 Total Protein 6.5 Albumin 3.7 TSH Free T4 Urine Color STRAW Urine Appearance CLEAR Urine pH 7.0 Ur Specific [place] 1.012 Urine Protein NEGATIVE Urine Glucose (UA) NEGATIVE Urine Ketones 20 H Urine Blood MODERATE H Urine Nitrite NEGATIVE Ur Leukocyte Esterase NEGATIVE Urine WBC (Auto) 1 07/15/17 04:26 WBC RBC Hgb Hct MCV MCH MCHC RDW Plt Count Seg Neutrophils % Lymphocytes % Monocytes % Eosinophils % Basophils % Absolute Neutrophils Absolute Lymphocytes Absolute Monocytes Absolute Eosinophils Absolute Basophils Sodium Potassium Chloride Carbon Dioxide Anion Gap BUN Creatinine Est GFR ( Amer) Est GFR (Non-Af Amer) Glucose Calcium Phosphorus Magnesium Total Bilirubin AST ALT Alkaline Phosphatase Total Protein Albumin TSH 0.34 L Free T4 2.69 H Urine Color Urine Appearance Urine pH Ur Specific [place] Urine Protein Urine Glucose (UA) Urine Ketones Urine Blood Urine Nitrite Ur Leukocyte Esterase Urine WBC (Auto) Impressions: Abdomen Ultrasound 07/14/17 00:00 IMPRESSION: Fatty liver. No acute findings. Head MRI 07/14/17 00:00 IMPRESSION: ATROPHY AND CHRONIC MICRO-VASCULAR ISCHEMIC CHANGES. Rim enhancing masses in the right frontal lobe and left parietal lobe as noted above consistent with metastatic disease. Other findings as noted above EVIDENCE OF ACUTE STROKE: NO. Chest X-Ray 07/14/17 08:24 IMPRESSION: 1. Stable left upper lobe collapse. 2. Increased density in the left mid lung laterally similar to prior CT with differential including radiation change and pneumonia. 3. Multiple metastatic foci within the lungs largest measuring 1.[address] 07/14/17 09:10 IMPRESSION: Brain metastasis. EVIDENCE OF ACUTE STROKE: NO. Assessment & Plan - Diagnosis (1) Brain metastasis Is this a current diagnosis for this admission?: Yes Plan: Secondary to right frontal mass measuring 2.1 x 2.3 cm in diameter and left parietal lobe mass measuring 4.1 x 3.8 cm in diameter: continue steroids (2) Elevated LFTs Is this a current diagnosis for this admission?: Yes Plan: Most likely secondary to fatty liver disease: We will continue to monitor. (3) Debility Is this a current diagnosis for this admission?: Yes (4) Hyponatremia Is this a current diagnosis for this admission?: Yes Plan: ER has given patient normal saline and IV fluids which were discontinued. Due to patient's sodium increasing by [address] patient on D5 one half normal saline. Will also discontinue fluid restriction. (5) Diabetes type 2, controlled Is this a current diagnosis for this admission?: Yes Plan: Place patient on sliding scale insulin. (6) Hypokalemia Is this a current diagnosis for this admission?: Yes Plan: We will give potassium replacement. (7) Lung cancer Qualifiers: Laterality: left Lung location: upper lobe of lung Qualified Code(s): C34.12 - Malignant neoplasm of upper lobe, left bronchus or lung Is this a current diagnosis for this admission?: Yes Plan: Per oncology. Patient is receiving chemo as outpatient (8) concern for Dysphagia Is this a current diagnosis for this admission?: Yes Plan: Patient's mentation has improved. Nursing states the patient did pass bedside swallow study. Oncology has advance patient's diet. (9) DVT prophylaxis Is this a current diagnosis for this admission?: Yes Plan: SCDs - Time Time Spent with patient: 25-34 minutes
[2017-07-15] MEDS: PANTOPRAZOLE SODIUM 40 MG VIAL IV SCH ×2 (10:27→21:20)
[2017-07-15] MEDS ORDERED: ONDANSETRON HCL INJ/PF 4 MG/2 ML SDV IV PRN (10:45)
[2017-07-15] MEDS ORDERED: PROMETHAZINE HCL INJ 25 MG/1 ML VIAL IV PRN (10:46)
[2017-07-15] MEDS ORDERED: ONDANSETRON HCL INJ/PF 4 MG/2 ML SDV ONE (10:51)
--- NOTE | 2017-07-15 12:01 | RADIOLOGY REPORT (SQ) ---
EXAM DESCRIPTION: CTA CHEST COMPLETED DATE/TIME: 07/15/2017 11:29 am REASON FOR STUDY: Evaluate for PE COMPARISON: 05/05/2017 TECHNIQUE: CT scan of the chest performed using helical scanning technique with dynamic intravenous contrast injection. Images reviewed with lung, soft tissue and bone windows. Reconstructed coronal and sagittal MPR images reviewed. Additional 3 dimensional post-processing performed to develop Maximal Intensity Projection images (IL P). All images stored on PACS. All CT scanners at this facility use dose modulation, iterative reconstruction, and/or weight based d osing when appropriate to reduce radiation dose to as low as reasonably achievable (ALARA). [facility]: Dose Right [facility]: CareDose [facility]: Dose Right [facility]: Teradose 4D [facility]: Eversight CONTRAST TYPE AND DOSE: contrast/concentration: Isovue 370.00 mg/ml; Total Contrast Delivered: 62.0 ml; Total Saline Delivered: 106.9 ml Contrast bolus adequate for pulmonary arteries and aorta. RENAL FUNCTION: Not provided. RADIATION DOSE: CT Rad equipment meets quality standard of care and radiation dose reduction techniq ues were employed. CTDIvol: 7.4 - 14.1 mGy. DLP: 892 mGy-cm. . LIMITATIONS: None. FINDINGS: LUNGS AND PLEURA: Multiple metastatic foci are seen within the lungs bilaterally worse shefali n on the prior study with largest lesion measuring 1.9 cm. Left upper lobe collapse which has differ ent configuration than on the prior study. This appears to be due to central bronchial obstruction. Stable abnormal air space density with air bronchograms is seen in the left mid lung posteriorly jus t inferior to the collapse. Differential includes pneumonia and radiation change. Small left pleura l effusion improved from the prior study. AORTA AND GREAT VESSELS: No aneurysm. HEART: Small pericardial effusion. No significant coronary artery calcifications. PULMONARY ARTERIES: No emboli visualized in the main pulmonary arteries or the segmental branches. HILAR AND MEDIASTINAL STRUCTURES: Mild mediastinal right hilar adenopathy worse than on the prior michael dy. Mild diffuse thickening of the esophageal wall which could be related radiation change. HARDWARE: None in the chest. UPPER ABDOMEN: See separate report of the CT of the abdomen. THYROID AND OTHER SOFT TISSUES: No masses. No adenopathy. BONES: No acute or significant finding. 3D MIPS: Confirm above findings. OTHER: No other significant finding. IMPRESSION: 1. No evidence of pulmonary embolus. 2. Worsening metastatic disease involving the lungs bilaterally with worsening mild mediastinal and right hilar adenopathy. 3. Persistent left upper lobe collapse. 4. Stable area of consolidation in the left mid lung posteriorly which could represent radiation jose david nge. 5. Small left pleural effusion improved from the prior study. COMMENT: Quality ID # [id number]: Final reports with documentation of one or more dose reduction techniques (e.g., Automated exposure control, adjustment of the mA and/or kV according to patient size, use of iterative reconstruction technique) TECHNICAL DOCUMENTATION: JOB ID: [id number] [employer]- All Rights Reserved Reading location - IP/workstation name: [email or web address]
--- NOTE | 2017-07-15 12:20 | RADIOLOGY REPORT (SQ) ---
EXAM DESCRIPTION: CT ABD/PELVIS WITH IV ONLY COMPLETED DATE/TIME: 07/15/2017 11:29 am REASON FOR STUDY: metastatic cancer COMPARISON: 05/05/2017. TECHNIQUE: CT scan of the abdomen and pelvis performed using helical scanning technique with dynamic intravenous contrast injection. No oral contrast. Images reviewed with lung, soft tissue, and bone windows. Reconstructed coronal and sagittal MPR images reviewed. Delayed images for evaluation of the urinary system also acquired. All images stored on PACS. All CT scanners at this facility use dose modulation, iterative reconstruction, and/or weight based d osing when appropriate to reduce radiation dose to as low as reasonably achievable (ALARA). [facility]: Dose Right [facility]: CareDose [facility]: Dose Right [facility]: Teradose 4D [facility]: [employer]ance CONTRAST TYPE AND DOSE: 62 mL Isovue 370- low osmolar. RENAL FUNCTION: Not provided. RADIATION DOSE: . LIMITATIONS: Motion artifact. FINDINGS: LOWER CHEST: See separate report of the CT of the chest. LIVER: Normal size. No masses. No dilated ducts. SPLEEN: Normal size. Calcified granulomas. No focal lesions. PANCREAS: No masses. No significant calcifications. No adjacent inflammation or peripancreatic fluid collections. Pancreatic duct not dilated. GALLBLADDER: Surgically absent. ADRENAL GLANDS: No significant masses or asymmetry. RIGHT KIDNEY AND URETER: Stable cortical cyst. No solid masses. No significant calcifications. N o hydronephrosis or hydroureter. LEFT KIDNEY AND URETER: No solid masses. No significant calcifications. No hydronephrosis or hydr oureter. AORTA AND VESSELS: No aneurysm. No dissection. Renal arteries, SMA, celiac without stenosis. RETROPERITONEUM: No retroperitoneal adenopathy, hemorrhage or masses. BOWEL AND PERITONEAL CAVITY: No masses or inflammatory changes. No free fluid or peritoneal masses. APPENDIX: Surgically absent. PELVIS: No mass. No free fluid. Normal bladder. ABDOMINAL WALL: No masses. No hernias. BONES: No significant or acute findings. OTHER: No other significant finding. IMPRESSION: STABLE CORTICAL CYST IN THE RIGHT KIDNEY. NO OTHER SIGNIFICANT OR ACUTE FINDING IN THE ABDOMEN OR PELVIS ON CT SCAN WITH IV CONTRAST. TECHNICAL DOCUMENTATION: JOB ID: [id number] Quality ID # [id number]: Final reports with documentation of one or more dose reduction techniques (e.g., Au tomated exposure control, adjustment of the mA and/or kV according to patient size, use of iterative reconstruction technique) 2010 [employer]- All Rights Reserved Reading location - IP/workstation name: [email or web address]
[2017-07-15] MEDS: POTASSI CL 20 MEQ/50 ML RIDER 20 MEQ/50 ML RTUPB IV SCH ×2 (12:35→14:04)
[2017-07-15] MEDS: HYDROCODONE/ACETAMINOPHEN 5-325 MG TABLET PO PRN ×2 (12:44→23:18)
[2017-07-15] MEDS: INSULIN LISPRO 100 UNIT/ML 3 ML VIAL SUBCUT PRN ×3 (14:04→23:18)
--- NOTE | 2017-07-15 15:35 | Physician Advisory Note ---
Physician Advisor ProgressNote .: Pursuant to the plan for [facility], I have reviewed the medical record for this patient. Physician Advisor Statement: Please consider documenting, if you agree (in each note, & DCSummary): 1. "Acute metabolic encephalopathy due to cerebral edema from brain mets, evidenced by acute loss of memory, & coordination x 2wks" 2. "Acute Hyponatremia, likely due to SIADH caused by lung CA/brain mets" ( need to be explicit about causality - "in the setting of" could mean " incidental to") 3. Continue to note the likely cause of elevated LFTs (steatohepatitis, or ... ) Thanks! CK
[2017-07-15] MEDS ORDERED: LORAZEPAM INJ 2 MG/1 ML VIAL IV PRN (17:23)
[2017-07-16] MEDS ORDERED: DILTIAZEM HCL INJ 25 MG/5 ML VIAL ONE ×2 (02:57→03:02)
[2017-07-16] MEDS: DILTIAZEM HCL/D5W 125 MG/125 ML RTUINJ IV PRN ×3 (03:00→15:28)
[2017-07-16 03:18] LABS: HEMATOCRIT 37.6 % (36.0-47.0); HEMOGLOBIN 12.6 g/dL (12.0-15.5); MEAN CORPUSCULAR HEMOGLOBIN 28.4 pg (27.0-33.4); MEAN CORPUSCULAR HGB CONC 33.4 g/dL (32.0-36.0); MEAN CORPUSCULAR VOLUME 85 fl (80-97); PLATELET COUNT 295 10^3/uL (150-450); RED BLOOD COUNT 4.42 10^6/uL (3.72-5.28); RED CELL DISTRIBUTION WIDTH 20.1 % (11.5-14.0); WHITE BLOOD COUNT 11.2 10^3/uL (4.0-10.5)
[2017-07-16] MEDS ORDERED: DILTIAZEM HCL INJ 25 MG/5 ML VIAL IV ONE (03:30)
[2017-07-16 03:34] LABS: ANION GAP 12 (5-19); BLOOD UREA NITROGEN 12 mg/dL (7-20); CALCIUM 9.6 mg/dL (8.4-10.2); CARBON DIOXIDE 21 mmol/L (22-30); CHLORIDE 100 mmol/L (98-107); GLUCOSE 202 mg/dL (75-110); POTASSIUM 3.9 mmol/L (3.6-5.0); SODIUM 132.7 mmol/L (137-145)
[2017-07-16 05:25] LABS: ABSOLUTE LYMPHOCYTES (AUTO) 0.7 10^3/uL (0.5-4.7); ABSOLUTE MONOCYTES (AUTO) 0.6 10^3/uL (0.1-1.4); ABSOLUTE NEUT (AUTO) 7.9 10^3/uL (1.7-8.2); BASOPHILS % (AUTO) 0.2 % (0-2); HEMATOCRIT 35.1 % (36.0-47.0); HEMOGLOBIN 12.1 g/dL (12.0-15.5); LYMPHOCYTES % (AUTO) 7.8 % (13-45); MEAN CORPUSCULAR HGB CONC 34.4 g/dL (32.0-36.0); MEAN CORPUSCULAR VOLUME 84 fl (80-97); MONOCYTES % (AUTO) 6.5 % (3-13); PLATELET COUNT 268 10^3/uL (150-450); RED BLOOD COUNT 4.17 10^6/uL (3.72-5.28); RED CELL DISTRIBUTION WIDTH 19.8 % (11.5-14.0); SEGMENTED NEUTROPHILS % (AUTO) 85.5 % (42-78); TOTAL CELLS COUNTED % (AUTO) 100 %; WHITE BLOOD COUNT 9.3 10^3/uL (4.0-10.5)
[2017-07-16 05:49] LABS: ALANINE AMINOTRANSFERASE 95 U/L (9-52); ALBUMIN 3.4 g/dL (3.5-5.0); ALKALINE PHOSPHATASE 62 U/L (38-126); ANION GAP 10 (5-19); ASPARTATE AMINO TRANSFERASE 98 U/L (14-36); BILIRUBIN,DIRECT 0.4 mg/dL (0.0-0.4); BILIRUBIN,TOTAL 0.7 mg/dL (0.2-1.3); BLOOD UREA NITROGEN 11 mg/dL (7-20); CALCIUM 9.5 mg/dL (8.4-10.2); CARBON DIOXIDE 21 mmol/L (22-30); CHLORIDE 101 mmol/L (98-107); GLUCOSE 206 mg/dL (75-110); POTASSIUM 3.8 mmol/L (3.6-5.0); SODIUM 132.3 mmol/L (137-145); TOTAL PROTEIN 5.9 g/dL (6.3-8.2)
[2017-07-16] MEDS ORDERED: DIGOXIN INJ 0.5 MG/2 ML AMPULE ONE (08:11)
--- NOTE | 2017-07-16 08:14 | PDOC PROGRESS REPORT ---
Subjective Progress Note for:: 07/16/17 Subjective:: Had long discussion w/ family, pt this am, they met w hospice yesterday and would like to get home hospice. Unfortunately HR went up to 180s, sats down to 70s, she was symptomatic, cardizem gtt started, EKG done this am indicating afib w/ RVR, digoxin being given. We discussed that this is needed for pt comfort. Reason For Visit: ACUTE ENCEPHALOPATHY SECONDARY TO BRAIN METASTASIS Physical Exam Vital Signs: Temp Pulse Resp BP Pulse Ox 98.6 F 122 H 18 101/75 94 07/16/17 00:03 07/16/17 08:00 07/16/17 08:00 07/16/17 05:30 07/16/17 08:00 Intake & Output 07/15/17 07/16/17 07/17/17 06:59 06:59 06:59 Intake Total 1936 Balance 1936 Weight 70.6 kg 71.7 kg General appearance: PRESENT: no acute distress, well-developed, well-nourished Head exam: PRESENT: atraumatic, normocephalic Eye exam: PRESENT: conjunctiva pink, EOMI, PERRLA. ABSENT: scleral icterus Ear exam: PRESENT: normal external ear exam Mouth exam: PRESENT: moist, tongue midline Neck exam: ABSENT: carotid bruit, JVD, lymphadenopathy, thyromegaly Respiratory exam: PRESENT: clear to auscultation mike. ABSENT: rales, rhonchi, wheezes Cardiovascular exam: PRESENT: RRR. ABSENT: diastolic murmur, rubs, systolic murmur Pulses: PRESENT: normal dorsalis pedis pul Vascular exam: PRESENT: normal capillary refill GI/Abdominal exam: PRESENT: normal bowel sounds, soft. ABSENT: distended, guarding, mass, organolmegaly, rebound, tenderness Rectal exam: PRESENT: deferred Extremities exam: PRESENT: full ROM. ABSENT: calf tenderness, clubbing, pedal edema Neurological exam: PRESENT: alert, awake, oriented to person, oriented to place , oriented to time, oriented to situation, CN II-XII grossly intact. ABSENT: motor sensory deficit Psychiatric exam: PRESENT: appropriate affect, normal mood. ABSENT: homicidal ideation, suicidal ideation Skin exam: PRESENT: dry, intact, warm. ABSENT: cyanosis, rash Results Laboratory Results: 07/16/17 04:25 03/08/18 04:25 07/16/17 07/16/17 07/16/17 03:10 03:10 04:25 WBC 11.2 H 9.3 RBC 4.42 4.17 Hgb 12.6 12.1 Hct 37.6 35.1 L MCV 85 84 MCH 28.4 29.0 MCHC 33.4 34.4 RDW 20.1 H 19.8 H Plt Count 295 268 Seg Neutrophils % 85.5 H Lymphocytes % 7.8 L Monocytes % 6.5 Eosinophils % 0.0 Basophils % 0.2 Absolute Neutrophils 7.9 Absolute Lymphocytes 0.7 Absolute Monocytes 0.6 Absolute Eosinophils 0.0 Absolute Basophils 0.0 Sodium 132.7 L Potassium 3.9 Chloride 100 Carbon Dioxide 21 L Anion Gap 12 BUN 12 Creatinine 0.74 Est GFR ( Amer) > 60 Est GFR (Non-Af Amer) > 60 Glucose 202 H Calcium 9.6 Magnesium 1.8 Total Bilirubin AST ALT Alkaline Phosphatase Total Protein Albumin 07/16/17 04:25 WBC RBC Hgb Hct MCV MCH MCHC RDW Plt Count Seg Neutrophils % Lymphocytes % Monocytes % Eosinophils % Basophils % Absolute Neutrophils Absolute Lymphocytes Absolute Monocytes Absolute Eosinophils Absolute Basophils Sodium 132.3 L Potassium 3.8 Chloride 101 Carbon Dioxide 21 L Anion Gap 10 BUN 11 Creatinine 0.73 Est GFR ( Amer) > 60 Est GFR (Non-Af Amer) > 60 Glucose 206 H Calcium 9.5 Magnesium 1.8 Total Bilirubin 0.7 AST 98 H ALT 95 H Alkaline Phosphatase 62 Total Protein 5.9 L Albumin 3.4 L 07/14/17 11:23 Clean Catch Midstream Urine Culture - Final 3,000 col/ml Impressions: Abdomen Ultrasound 07/14/17 00:00 IMPRESSION: Fatty liver. No acute findings. Head MRI 07/14/17 00:00 IMPRESSION: ATROPHY AND CHRONIC MICRO-VASCULAR ISCHEMIC CHANGES. Rim enhancing masses in the right frontal lobe and left parietal lobe as noted above consistent with metastatic disease. Other findings as noted above EVIDENCE OF ACUTE STROKE: NO. Chest X-Ray 07/14/17 08:24 IMPRESSION: 1. Stable left upper lobe collapse. 2. Increased density in the left mid lung laterally similar to prior CT with differential including radiation change and pneumonia. 3. Multiple metastatic foci within the lungs largest measuring 1.[address] 07/14/17 09:10 IMPRESSION: Brain metastasis. EVIDENCE OF ACUTE STROKE: NO. Chest/Abdomen CTA 07/15/17 00:00 IMPRESSION: 1. No evidence of pulmonary embolus. 2. Worsening metastatic disease involving the lungs bilaterally with worsening mild mediastinal and right hilar adenopathy. 3. Persistent left upper lobe collapse. 4. Stable area of consolidation in the left mid lung posteriorly which could represent radiation change. 5. Small left pleural effusion improved from the prior study. Abdomen/Pelvis CT 07/15/17 10:17 IMPRESSION: STABLE CORTICAL CYST IN THE RIGHT KIDNEY. NO OTHER SIGNIFICANT OR ACUTE FINDING IN THE ABDOMEN OR PELVIS ON CT SCAN WITH IV CONTRAST. Assessment & Plan - Diagnosis (1) Lung cancer Qualifiers: Laterality: left Lung location: upper lobe of lung Qualified Code(s): C34.12 - Malignant neoplasm of upper lobe, left bronchus or lung Is this a current diagnosis for this admission?: Yes Plan: No further chemo/rx possible, family and pt decided against WB XRT, hopeful d/c to home hospice once afib under better control (2) Brain metastasis Is this a current diagnosis for this admission?: Yes Plan: No xrt planned, will need to d/c w/ oral dex 4mg BID on d/c (3) Afib Qualifiers: Atrial fibrillation type: paroxysmal Qualified Code(s): I48.0 - Paroxysmal atrial fibrillation Is this a current diagnosis for this admission?: Yes Plan: AFIB w/ RVR, probably metabolic in origin w/ hyponatremia, may also be related to disease progression in lung, needs management for comfort, once hospitalist team feels it is adequately managed, will d/c on home hospice - Time Time Spent with patient: 35 or more minutes - Inpatient Certification Based on my medical assessment, after consideration of the patient's comorbidities, presenting symptoms, or acuity I expect that the services needed warrant INPATIENT care.: Yes I certify that my determination is in accordance with my understanding of Medicare's requirements for reasonable and necessary INPATIENT services [42 CFR 412.3e].: Yes Medical Necessity: Need For Continuous Telemetry Monitoring, Risk of Complication if Not Cared For in Hospital
[2017-07-16] MEDS: DEXAMETHASONE SOD PHOSPHATE INJ 4 MG/1 ML VIAL IV SCH ×2 (08:22→19:32)
[2017-07-16] MEDS: HYDROCODONE/ACETAMINOPHEN 5-325 MG TABLET PO PRN ×3 (08:22→18:08)
[2017-07-16] MEDS ORDERED: DIGOXIN INJ 0.5 MG/2 ML AMPULE IV ONE (08:30)
--- NOTE | 2017-07-16 09:04 | PDOC PROGRESS REPORT ---
Subjective Progress Note for:: 07/16/17 Subjective:: Patient states that she is feeling a little better today. Nursing states that patient went into A. fib overnight. Patient was put on a diltiazem drip. Patient denies any chest pain. Received call from Dr. Aguilar states that patient is now DNR and that patient's family has met with hospice Reason For Visit: ACUTE ENCEPHALOPATHY SECONDARY TO BRAIN METASTASIS Physical Exam Vital Signs: Temp Pulse Resp BP Pulse Ox 97.4 F 122 H 18 122/75 94 07/16/17 07:43 07/16/17 08:00 07/16/17 08:00 07/16/17 07:43 07/16/17 08:00 Intake & Output 07/15/17 07/16/17 07/17/17 06:59 06:59 06:59 Intake Total 1936 Balance 1936 Weight 70.6 kg 71.7 kg General appearance: PRESENT: no acute distress, well-developed, well-nourished Head exam: PRESENT: atraumatic, normocephalic Eye exam: PRESENT: conjunctiva pink, EOMI. ABSENT: scleral icterus Ear exam: PRESENT: normal external ear exam Mouth exam: PRESENT: moist, tongue midline Neck exam: ABSENT: carotid bruit, JVD, lymphadenopathy, thyromegaly Respiratory exam: PRESENT: clear to auscultation mike. ABSENT: rales, rhonchi, wheezes Cardiovascular exam: PRESENT: RRR. ABSENT: diastolic murmur, rubs, systolic murmur Pulses: PRESENT: normal dorsalis pedis pul Vascular exam: PRESENT: normal capillary refill GI/Abdominal exam: PRESENT: normal bowel sounds, soft. ABSENT: distended, guarding, mass, organolmegaly, rebound, tenderness Rectal exam: PRESENT: deferred Extremities exam: PRESENT: full ROM. ABSENT: calf tenderness, clubbing, pedal edema Neurological exam: PRESENT: alert, awake, oriented to person, oriented to place , oriented to time, oriented to situation, CN II-XII grossly intact, other - Patient alert and oriented to person place and time location [place], year 2017, and President Layo Meeks. ABSENT: motor sensory deficit Psychiatric exam: PRESENT: appropriate affect, normal mood. ABSENT: homicidal ideation, suicidal ideation Skin exam: PRESENT: dry, intact, warm. ABSENT: cyanosis, rash Results Laboratory Results: 07/16/17 04:25 07/16/17 04:25 07/16/17 07/16/17 07/16/17 03:10 03:10 04:25 WBC 11.2 H 9.3 RBC 4.42 4.17 Hgb 12.6 12.1 Hct 37.6 35.1 L MCV 85 84 MCH 28.4 29.0 MCHC 33.4 34.4 RDW 20.1 H 19.8 H Plt Count 295 268 Seg Neutrophils % 85.5 H Lymphocytes % 7.8 L Monocytes % 6.5 Eosinophils % 0.0 Basophils % 0.2 Absolute Neutrophils 7.9 Absolute Lymphocytes 0.7 Absolute Monocytes 0.6 Absolute Eosinophils 0.0 Absolute Basophils 0.0 Sodium 132.7 L Potassium 3.9 Chloride 100 Carbon Dioxide 21 L Anion Gap 12 BUN 12 Creatinine 0.74 Est GFR ( Amer) > 60 Est GFR (Non-Af Amer) > 60 Glucose 202 H Calcium 9.6 Magnesium 1.8 Total Bilirubin AST ALT Alkaline Phosphatase Total Protein Albumin 07/16/17 04:25 WBC RBC Hgb Hct MCV MCH MCHC RDW Plt Count Seg Neutrophils % Lymphocytes % Monocytes % Eosinophils % Basophils % Absolute Neutrophils Absolute Lymphocytes Absolute Monocytes Absolute Eosinophils Absolute Basophils Sodium 132.3 L Potassium 3.8 Chloride 101 Carbon Dioxide 21 L Anion Gap 10 BUN 11 Creatinine 0.73 Est GFR ( Amer) > 60 Est GFR (Non-Af Amer) > 60 Glucose 206 H Calcium 9.5 Magnesium 1.8 Total Bilirubin 0.7 AST 98 H ALT 95 H Alkaline Phosphatase 62 Total Protein 5.9 L Albumin 3.4 L 07/14/17 11:23 Clean Catch Midstream Urine Culture - Final 3,000 col/ml Impressions: Abdomen Ultrasound 07/14/17 00:00 IMPRESSION: Fatty liver. No acute findings. Head MRI 07/14/17 00:00 IMPRESSION: ATROPHY AND CHRONIC MICRO-VASCULAR ISCHEMIC CHANGES. Rim enhancing masses in the right frontal lobe and left parietal lobe as noted above consistent with metastatic disease. Other findings as noted above EVIDENCE OF ACUTE STROKE: NO. Chest X-Ray 07/14/17 08:24 IMPRESSION: 1. Stable left upper lobe collapse. 2. Increased density in the left mid lung laterally similar to prior CT with differential including radiation change and pneumonia. 3. Multiple metastatic foci within the lungs largest measuring 1.[address] 07/14/17 09:10 IMPRESSION: Brain metastasis. EVIDENCE OF ACUTE STROKE: NO. Chest/Abdomen CTA 07/15/17 00:00 IMPRESSION: 1. No evidence of pulmonary embolus. 2. Worsening metastatic disease involving the lungs bilaterally with worsening mild mediastinal and right hilar adenopathy. 3. Persistent left upper lobe collapse. 4. Stable area of consolidation in the left mid lung posteriorly which could represent radiation change. 5. Small left pleural effusion improved from the prior study. Abdomen/Pelvis CT 07/15/17 10:17 IMPRESSION: STABLE CORTICAL CYST IN THE RIGHT KIDNEY. NO OTHER SIGNIFICANT OR ACUTE FINDING IN THE ABDOMEN OR PELVIS ON CT SCAN WITH IV CONTRAST. Assessment & Plan - Diagnosis (1) Afib Qualifiers: Atrial fibrillation type: paroxysmal Qualified Code(s): I48.0 - Paroxysmal atrial fibrillation Is this a current diagnosis for this admission?: Yes Plan: Patient on diltiazem drip. Patient was given IV dig and heart rate is 97. Will place patient on p.o. dig. Will consult cardiology to assist with heart rate management. Patient is DNR therefore plan is to have heart rate under good control for comfort care measures. (2) Brain metastasis Is this a current diagnosis for this admission?: Yes Plan: Secondary to right frontal mass measuring 2.1 x 2.3 cm in diameter and left parietal lobe mass measuring 4.1 x 3.8 cm in diameter: continue steroids (3) Elevated LFTs Is this a current diagnosis for this admission?: Yes Plan: Most likely secondary to fatty liver disease: We will continue to monitor. (4) Debility Is this a current diagnosis for this admission?: Yes Plan: Secondary to brain metastasis of lung cancer: We will write for PT OT once patient's mentation has improved. (5) Hyponatremia Is this a current diagnosis for this admission?: Yes Plan: Most likely secondary to SIADH: Will discontinue IVFs (6) Diabetes type 2, controlled Is this a current diagnosis for this admission?: Yes Plan: Place patient on sliding scale insulin. (7) Hypokalemia Is this a current diagnosis for this admission?: Yes Plan: Resolved. (8) Lung cancer Qualifiers: Laterality: left Lung location: upper lobe of lung Qualified Code(s): C34.12 - Malignant neoplasm of upper lobe, left bronchus or lung Is this a current diagnosis for this admission?: Yes Plan: Per oncology. Patient is receiving chemo as outpatient (9) concern for Dysphagia Is this a current diagnosis for this admission?: Yes Plan: Will place pt on clear liquid with scheduled Zofran. (10) DVT prophylaxis Is this a current diagnosis for this admission?: Yes Plan: SCDs - Time Time Spent with patient: 25-34 minutes - Plan to discharge patient home with hospice tomorrow.
[2017-07-16] MEDS: DIGOXIN 0.125 MG TABLET PO SCH (10:30)
[2017-07-16] MEDS: PANTOPRAZOLE SODIUM 40 MG VIAL IV SCH ×2 (10:31→22:14)
--- NOTE | 2017-07-16 10:33 | EKG REPORT ---
SEVERITY:- ABNORMAL ECG - ATRIAL FIBRILLATION, V-RATE 64-183 ANTERIOR INFARCT, AGE INDETERMINATE NONSPECIFIC T ABNORMALITIES, INFERIOR LEADS : Confirmed by: Delmis Garrett 16-Jul-2017 10:32:49
--- NOTE | 2017-07-16 10:34 | EKG REPORT ---
SEVERITY:- ABNORMAL ECG - ATRIAL FIBRILLATION WITH RAPID V-RATE VENTRICULAR PREMATURE COMPLEX LOW VOLTAGE IN FRONTAL LEADS CONSIDER ANTERIOR INFARCT BORDERLINE T ABNORMALITIES, DIFFUSE LEADS : Confirmed by: Delmis Garrett 16-Jul-2017 10:33:02
[2017-07-16] MEDS: ONDANSETRON HCL 8 MG TABLET PO SCH ×2 (11:59→17:29)
[2017-07-16] MEDS ORDERED: METOPROLOL SUCCINATE 25 MG TAB.SR.24H PO SCH (12:00)
--- NOTE | 2017-07-16 18:15 | XCELERA REPORT ---
[address] [address] Transthoracic Echocardiogram Report Name: ANUP BARRIOS Age: 67 yrs Gender: Female : 1950 Patient Status: Inpatient Patient Location: [address] [place], [place] [address] Study Date: 07/16/2017 02:53 PM Height: 64 in Weight: 158 lb BSA: 1.8 m2 Procedure: A complete two-dimensional transthoracic echocardiogram was performed (2D, M-mode, spectral and color flow Doppler). The study was technically adequate with some images being suboptimal in quality. Reason For Study: a fib rvr Ordering Physician: DELMIS LINDSAY Performed By: Nunu Green Interpretation Summary The left ventricular ejection fraction is normal. There is moderate concentric left ventricular hypertrophy. The left ventricle is grossly normal size. Doppler measurements suggest reversible restrictive left ventricular relaxation, which is associated with grade III/IV or moderate diastolic dysfunction Wall motion cannot be accurately commented on, but no definite regional wall motion abnormalities noted. The right ventricle is grossly normal size. The right ventricular systolic function is normal. The left atrium is mildly dilated. The right atrium is normal in size There is a mild to moderate amount of mitral regurgitation There is no mitral valve stenosis. There is a trace amount of aortic regurgitation There is no aortic valve stenosis There is a mild amount of tricuspid regurgitation There is mild to moderate pulmonary hypertension by echo Right ventricular systolic pressure is estimated to be elevated at 40- 50mmHg. The aortic root is not well visualized. The inferior vena cava appeared normal and decreased < 50% with respiration (RAP 10-15 mmHg) Minimal pericardial effusion. MMode/2D Measurements & Calculations RVDd: 2.4 cm LVIDd: 3.4 cm FS: 35.5 % Ao root diam: 2.8 cm IVSd: 1.3 cm LVIDs: 2.2 cm EDV(Teich): 48.3 ml LVPWd: 1.3 cm ESV(Teich): 16.4 ml Ao root area: 6.1 cm2 EF(Teich): 66.1 % Doppler Measurements & Calculations MV E max barbra: MV dec slope: Ao V2 max: LV V1 max P.9 cm/sec 160.2 cm/sec 3.4 mmHg 990.2 cm/sec2 Ao max PG: LV V1 max: MV dec time: 10.3 mmHg 91.7 cm/sec 0.12 sec PA V2 max: PI end-d barbra: TR max barbra: 106.2 cm/sec 154.2 cm/sec 267.9 cm/sec PA max P.5 mmHg TR max P.8 mmHg Left Ventricle The left ventricle is grossly normal size. There is moderate concentric left ventricular hypertrophy. The left ventricular ejection fraction is normal. Doppler measurements suggest reversible restrictive left ventricular relaxation, which is associated with grade III/IV or moderate diastolic dysfunction. Wall motion cannot be accurately commented on, but no definite regional wall motion abnormalities noted. Right Ventricle The right ventricle is grossly normal size. There is normal right ventricular wall thickness. The right ventricular systolic function is normal. Atria The right atrium is normal in size. The left atrium is mildly dilated. Interarterial septum not well visualized and not well dopplered. Cannot comment on ASD/PFO presence. Mitral Valve The mitral valve is grossly normal. There is no mitral valve stenosis. There is a mild to moderate amount of mitral regurgitation. Aortic Valve The aortic valve is sclerotic, but shows no functional abnormality. There is no aortic valve stenosis. There is a trace amount of aortic regurgitation. Tricuspid Valve The tricuspid valve is not well visualized, but is grossly normal. There is no tricuspid stenosis. There is a mild amount of tricuspid regurgitation. There is mild to moderate pulmonary hypertension by echo. Right ventricular systolic pressure is estimated to be elevated at 40-50mmHg. Pulmonic Valve The pulmonic valve is not well visualized. Great Vessels The aortic root is not well visualized. The inferior vena cava appeared normal and decreased < 50% with respiration (RAP 10-15 mmHg). Effusions Minimal pericardial effusion. : DELMIS LINDSAY > Delmis Lindsay
--- NOTE | 2017-07-16 19:51 | PDOC CONSULTATION ---
Consultation Consult Date: 07/16/17 Attending physician:: RAMAN MANCILLA Consult reason:: a fib rvr History of Present Illness Admission Date/PCP: 07/14/17 10:48 HERIBERTO BROWNE PA-C Patient complains of: Palpitations History of Present Illness: 67-year-old female with known history of stage IV lung cancer who most recently was on third line chemotherapy, she unfortunately progressed through [place] doublet, immunotherapy, and now single agent Gemzar. In the last week she has had increasing weakness, confusion, and balance issues, we have set her up for an outpatient MRI as well as restaging CT, but in the interim she became very lethargic, weak, confused, and she was brought into the ED. While in the ED she had a CT which indicated brain metastasis, this was followed by MRI which indicated a mass in the right frontal lesion 2.3 cm, mass in the left parietal region 4.1 cm, quite a bit of vasogenic edema. We gave her steroids yesterday, today she does seem hungry, she is sitting up in a chair, and she seems more oriented. She is hungry. I had a long discussion with them about the MRI results, and next steps of care. We spent greater than 70 minutes in discussion. Patient was noted to be in atrial fibrillation with rapid ventricular response. Patient was therefore kept in the hospital for heart rate control. I was asked to help in this regard. Patient on questioning denied any chest pain. She just feels very fatigued and tired. Patient does have shortness of breath. Patient currently has advanced malignancy and no further aggressive management is planned. Past Medical History Cardiac Medical History: Reports: Hypertension Endocrine Medical History: Reports: Diabetes Mellitus Type 1, Diabetes Mellitus Type 2 Malignancy Medical History: Reports: Lung Cancer Psychiatric Medical History: Denies: Depression Past Surgical History Past Surgical History: Reports: Cholecystectomy, Hysterectomy Social History Information Source: Patient Smoking Status: Former Smoker Number of Years Smokin Last Time Smoked: 2003 Frequency of Alcohol Use: None Hx Recreational Drug Use: No Drugs: None Hx Prescription Drug Abuse: No - Advance Directive Resuscitation Status: Do Not Resuscitate Family History Family History: Reviewed & Not Pertinent Parental Family History Reviewed: Yes Children Family History Reviewed: Yes Sibling(s) Family History Reviewed.: Yes Medication/Allergy Home Medications: Baclofen [Baclofen 10 mg Tablet] 10 mg PO Q6HP PRN 07/14/17 Hydrochlorothiazide [Hydrodiuril 12.5 mg Capsule] 12.5 mg PO DAILY 07/14/17 Metoprolol Succinate [Toprol Xl 50 mg Tab.sr] 50 mg PO DAILY 07/14/17 Ondansetron HCl [Zofran 8 mg Tablet] 8 mg PO Q8HP PRN 07/14/17 Promethazine HCl [Phenergan 25 mg Tablet] 25 mg PO Q6HP PRN 07/14/17 Sitagliptin Phos/Metformin HCl [Janumet 50-1,000 mg Tablet] 1 tab PO DAILY 07/14 Allergies/Adverse Reactions: Penicillins Allergy (Verified 07/14/17 09:01) Review of Systems Review of Systems: Please see history of present illness and past medical history as wall. Constitutional: Marked fatigue and tiredness reported.. Head : Recent increasing headaches reported but no recent head injury. Eyes: No recent eye pain, diplopia, redness, discharge, acute visual changes. Ears: No recent chronic ear pain, acute hearing loss, ear discharge. Oral cavity: No recent ulcerations, bleeding, oral cavity discomfort. Neck: No recent acute neck pain reported. Hematologic: No recent easy bruising or bleeding or hematologic malignancy reported. Lymphatic: No recent lymphatic malignancy, chronic lymphadenopathy reported yet Cardiovascular system review: See history of present illness. Respiratory system review: No recent chronic cough, hemoptysis, blood clots in the lungs reported. Mild Shortness of breath on exertion Gastrointestinal system review: Negative for any recent acute or chronic abdominal pain, hematemesis, melena, recent change in bowel habits. Genitourinary system review: No recent acute or chronic hematuria, flank pain, UTI etc. reported. Skin system review: Negative for any recent abnormal bruising, no rash, no pruritus reported. Neurologic: No prior history of strokes, mini strokes, seizure disorder. Problems with balance reported and some difficulty with ambulation Psychologic: No history of major psychosis or major depression reported. Musculoskeletal: Minor aches and pains reported. No acute joint swelling reported. Endocrine: No recent polyuria, polydipsia, recent heat or cold intolerance. Physical Exam Vital Signs: Temp Pulse Resp BP Pulse Ox 97.4 F 122 H 18 122/75 94 07/16/17 07:43 07/16/17 08:00 07/16/17 08:00 07/16/17 07:43 07/16/17 08:00 Intake & Output 07/15/17 07/16/17 07/17/17 06:59 06:59 06:59 Intake Total 1936 Balance 1936 Weight 70.6 kg 71.7 kg Exam: General appearance: PRESENT: Mild lethargy noted, no acute distress, well- developed, well-nourished Head exam: PRESENT: atraumatic, normocephalic Eye exam: PRESENT: conjunctiva pink, EOMI, PERRLA. ABSENT: scleral icterus Ear exam: PRESENT: normal external ear exam Mouth exam: PRESENT: moist, tongue midline Neck exam: ABSENT: carotid bruit, JVD, lymphadenopathy, thyromegaly Respiratory exam: PRESENT: clear to auscultation mike. ABSENT: rales, rhonchi, wheezes Cardiovascular exam: PRESENT: Irregular heart rate, 2/6 ejection systolic murmur noted in the aortic area, 1/6 pansystolic murmur noted in the mitral area.. ABSENT: diastolic murmur, rubs, systolic murmur Pulses: PRESENT: normal dorsalis pedis pul Vascular exam: PRESENT: normal capillary refill GI/Abdominal exam: PRESENT: normal bowel sounds, soft. ABSENT: distended, guarding, mass, organolmegaly, rebound, tenderness Rectal exam: PRESENT: deferred Extremities exam: PRESENT: full ROM. ABSENT: calf tenderness, clubbing, pedal edema Neurological exam: PRESENT: alert, awake, oriented to person, oriented to place , oriented to time, oriented to situation, CN II-XII grossly intact. ABSENT: motor sensory deficit Psychiatric exam: PRESENT: appropriate affect, normal mood. ABSENT: homicidal ideation, suicidal ideation Skin exam: PRESENT: dry, intact, warm. ABSENT: cyanosis, rash Results Laboratory Results: 07/16/17 04:25 07/16/17 04:25 07/16/17 07/16/17 07/16/17 03:10 03:10 04:25 WBC 11.2 H 9.3 RBC 4.42 4.17 Hgb 12.6 12.1 Hct 37.6 35.1 L MCV 85 84 MCH 28.4 29.0 MCHC 33.4 34.4 RDW 20.1 H 19.8 H Plt Count 295 268 Seg Neutrophils % 85.5 H Lymphocytes % 7.8 L Monocytes % 6.5 Eosinophils % 0.0 Basophils % 0.2 Absolute Neutrophils 7.9 Absolute Lymphocytes 0.7 Absolute Monocytes 0.6 Absolute Eosinophils 0.0 Absolute Basophils 0.0 Sodium 132.7 L Potassium 3.9 Chloride 100 Carbon Dioxide 21 L Anion Gap 12 BUN 12 Creatinine 0.74 Est GFR ( Amer) > 60 Est GFR (Non-Af Amer) > 60 Glucose 202 H Calcium 9.6 Magnesium 1.8 Total Bilirubin AST ALT Alkaline Phosphatase Total Protein Albumin 07/16/17 04:25 WBC RBC Hgb Hct MCV MCH MCHC RDW Plt Count Seg Neutrophils % Lymphocytes % Monocytes % Eosinophils % Basophils % Absolute Neutrophils Absolute Lymphocytes Absolute Monocytes Absolute Eosinophils Absolute Basophils Sodium 132.3 L Potassium 3.8 Chloride 101 Carbon Dioxide 21 L Anion Gap 10 BUN 11 Creatinine 0.73 Est GFR ( Amer) > 60 Est GFR (Non-Af Amer) > 60 Glucose 206 H Calcium 9.5 Magnesium 1.8 Total Bilirubin 0.7 AST 98 H ALT 95 H Alkaline Phosphatase 62 Total Protein 5.9 L Albumin 3.4 L 07/14/17 11:23 Clean Catch Midstream Urine Culture - Final 3,000 col/ml EKG Comments: Twelve-lead EKG shows atrial fibrillation with rapid ventricular response, low voltage QRS complex frontal leads, ST-T changes with T-wave inversion lateral precordial lead consistent with evolving anterolateral myocardial infarction. Impressions: Abdomen Ultrasound 07/14/17 00:00 IMPRESSION: Fatty liver. No acute findings. Head MRI 07/14/17 00:00 IMPRESSION: ATROPHY AND CHRONIC MICRO-VASCULAR ISCHEMIC CHANGES. Rim enhancing masses in the right frontal lobe and left parietal lobe as noted above consistent with metastatic disease. Other findings as noted above EVIDENCE OF ACUTE STROKE: NO. Chest X-Ray 07/14/17 08:24 IMPRESSION: 1. Stable left upper lobe collapse. 2. Increased density in the left mid lung laterally similar to prior CT with differential including radiation change and pneumonia. 3. Multiple metastatic foci within the lungs largest measuring 1.[address] 07/14/17 09:10 IMPRESSION: Brain metastasis. EVIDENCE OF ACUTE STROKE: NO. Chest/Abdomen CTA 07/15/17 00:00 IMPRESSION: 1. No evidence of pulmonary embolus. 2. Worsening metastatic disease involving the lungs bilaterally with worsening mild mediastinal and right hilar adenopathy. 3. Persistent left upper lobe collapse. 4. Stable area of consolidation in the left mid lung posteriorly which could represent radiation change. 5. Small left pleural effusion improved from the prior study. Abdomen/Pelvis CT 07/15/17 10:17 IMPRESSION: STABLE CORTICAL CYST IN THE RIGHT KIDNEY. NO OTHER SIGNIFICANT OR ACUTE FINDING IN THE ABDOMEN OR PELVIS ON CT SCAN WITH IV CONTRAST. Assessment & Plan - Diagnosis (1) Atrial fibrillation with rapid ventricular response Is this a current diagnosis for this admission?: Yes (2) Abnormal electrocardiogram Is this a current diagnosis for this admission?: Yes (3) Metastatic cancer Is this a current diagnosis for this admission?: Yes (4) Diabetes mellitus Qualifiers: Diabetes mellitus type: type 2 Diabetes mellitus complication status: with unspecified complications Diabetes mellitus detention insulin use: unspecified detention insulin use status Qualified Code(s): E11.8 - Type 2 diabetes mellitus with unspecified complications Is this a current diagnosis for this admission?: Yes (5) Hypertension Qualifiers: Hypertension type: essential hypertension Qualified Code(s): I10 - Essential (primary) hypertension Is this a current diagnosis for this admission?: Yes - Notes Notes: I was asked to help with heart rate control. A 2D echocardiogram was obtained in view of markedly abnormal EKG. The echocardiogram shows overall LVEF to be within normal limits. Moderate LVH was noted. Mild valvular regurgitation was noted. LVEF was actually noted to be hyperdynamic. It is felt that beta-kamla would be a better option based on 2D echo review and patient was started on it. Recommend gradually escalating the dose. Although patient has markedly abnormal EKG, do not feel patient is a candidate at this point for any further aggressive evaluation. Will continue to follow patient for heart rate control. Other management plans for other significant medical problems is being left to the hospitalist and oncologist. As usual I thank Dr. Christensen very much for involving me in the care of this nice lady. - Time Time Spent with patient: CODE STATUS : was discussed, patient remains DO NOT RESUSCITATE. Surrogate decision-maker unchanged. Multiple medical problems were addressed. More than 50% of the time spent coordinating care, discussing management plans with involved caregivers. Management plans discussed with involved personnels. Medical decision making was of moderate to high complexity, patient's has multiple comorbidities. Time Spent: 30 to 50 Minutes Medications reviewed and adjusted accordingly: Yes
[2017-07-16] MEDS: METOPROLOL SUCCINATE 25 MG TAB.SR.24H PO SCH (22:14)
[2017-07-17] MEDS: HYDROCODONE/ACETAMINOPHEN 5-325 MG TABLET PO PRN ×3 (00:18→16:23)
[2017-07-17] MEDS: ONDANSETRON HCL 8 MG TABLET PO SCH ×5 (00:19→23:16)
[2017-07-17] MEDS ORDERED: DIGOXIN INJ 0.5 MG/2 ML AMPULE ONE (07:17)
--- NOTE | 2017-07-17 08:02 | PDOC PROGRESS REPORT ---
Subjective Progress Note for:: 07/17/17 Subjective:: HR still was in 140s yesterday, pt o2 sat went to 80s, inc 02, gave more IV dig , con't currently on cardizem gtt Reason For Visit: ACUTE ENCEPHALOPATHY SECONDARY TO BRAIN METASTASIS Physical Exam Vital Signs: Temp Pulse Resp BP Pulse Ox 98.1 F 113 H 16 139/71 H 91 L 07/16/17 23:14 07/17/17 06:00 07/17/17 04:00 07/17/17 06:00 07/17/17 04:00 Intake & Output 07/16/17 07/17/17 07/18/17 06:59 06:59 06:59 Intake Total 7 887 Balance 1936 887 Weight 71.7 kg 72.3 kg General appearance: PRESENT: no acute distress, well-developed, well-nourished Head exam: PRESENT: atraumatic, normocephalic Eye exam: PRESENT: conjunctiva pink, EOMI, PERRLA. ABSENT: scleral icterus Ear exam: PRESENT: normal external ear exam Mouth exam: PRESENT: moist, tongue midline Neck exam: ABSENT: carotid bruit, JVD, lymphadenopathy, thyromegaly Respiratory exam: PRESENT: clear to auscultation mike. ABSENT: rales, rhonchi, wheezes Cardiovascular exam: PRESENT: RRR. ABSENT: diastolic murmur, rubs, systolic murmur Pulses: PRESENT: normal dorsalis pedis pul Vascular exam: PRESENT: normal capillary refill GI/Abdominal exam: PRESENT: normal bowel sounds, soft. ABSENT: distended, guarding, mass, organolmegaly, rebound, tenderness Rectal exam: PRESENT: deferred Extremities exam: PRESENT: full ROM. ABSENT: calf tenderness, clubbing, pedal edema Neurological exam: PRESENT: alert, awake, oriented to person, oriented to place , oriented to time, oriented to situation, CN II-XII grossly intact. ABSENT: motor sensory deficit Psychiatric exam: PRESENT: appropriate affect, normal mood. ABSENT: homicidal ideation, suicidal ideation Skin exam: PRESENT: dry, intact, warm. ABSENT: cyanosis, rash Results Laboratory Results: 07/16/17 04:25 07/16/17 04:25 Impressions: Abdomen Ultrasound 07/14/17 00:00 IMPRESSION: Fatty liver. No acute findings. Head MRI 07/14/17 00:00 IMPRESSION: ATROPHY AND CHRONIC MICRO-VASCULAR ISCHEMIC CHANGES. Rim enhancing masses in the right frontal lobe and left parietal lobe as noted above consistent with metastatic disease. Other findings as noted above EVIDENCE OF ACUTE STROKE: NO. Chest X-Ray 07/14/17 08:24 IMPRESSION: 1. Stable left upper lobe collapse. 2. Increased density in the left mid lung laterally similar to prior CT with differential including radiation change and pneumonia. 3. Multiple metastatic foci within the lungs largest measuring 1.[address] 07/14/17 09:10 IMPRESSION: Brain metastasis. EVIDENCE OF ACUTE STROKE: NO. Chest/Abdomen CTA 07/15/17 00:00 IMPRESSION: 1. No evidence of pulmonary embolus. 2. Worsening metastatic disease involving the lungs bilaterally with worsening mild mediastinal and right hilar adenopathy. 3. Persistent left upper lobe collapse. 4. Stable area of consolidation in the left mid lung posteriorly which could represent radiation change. 5. Small left pleural effusion improved from the prior study. Abdomen/Pelvis CT 07/15/17 10:17 IMPRESSION: STABLE CORTICAL CYST IN THE RIGHT KIDNEY. NO OTHER SIGNIFICANT OR ACUTE FINDING IN THE ABDOMEN OR PELVIS ON CT SCAN WITH IV CONTRAST. Assessment & Plan - Diagnosis (1) Lung cancer Qualifiers: Laterality: left Lung location: upper lobe of lung Qualified Code(s): C34.12 - Malignant neoplasm of upper lobe, left bronchus or lung Is this a current diagnosis for this admission?: Yes Plan: No further rx planned, home hospice when HR under better control (2) Brain metastasis Is this a current diagnosis for this admission?: Yes Plan: No rx planned, cont steroids for now. (3) Afib Qualifiers: Atrial fibrillation type: paroxysmal Qualified Code(s): I48.0 - Paroxysmal atrial fibrillation Is this a current diagnosis for this admission?: Yes Plan: multifactorial 2nd metabolic, ca mets, and probable inherent cardiac dx, cont per hospitalist and cards team
[2017-07-17] MEDS: DEXAMETHASONE SOD PHOSPHATE INJ 4 MG/1 ML VIAL IV SCH ×2 (08:34→20:09)
[2017-07-17] MEDS: PANTOPRAZOLE SODIUM 40 MG VIAL IV SCH (09:57)
[2017-07-17] MEDS: METOPROLOL SUCCINATE 25 MG TAB.SR.24H PO SCH ×2 (09:57→22:17)
[2017-07-17] MEDS: DIGOXIN 0.125 MG TABLET PO SCH (09:57)
[2017-07-17] MEDS ORDERED: FENTANYL 25 MCG/HR PATCH.TD72 TD SCH (10:00)
[2017-07-17] MEDS ORDERED: DIGOXIN 0.125 MG TABLET PO SCH (10:12)
--- NOTE | 2017-07-17 10:22 | PDOC PROGRESS REPORT ---
Subjective Progress Note for:: 07/17/17 Subjective:: Patient states that she is feeling somewhat better. Nursing states the patient' s heart rate is still in the 120s-130s. Patient also desats 1 heart rate is elevated. Spoke to Dr. Aguilar let them know that we are still working on adjusting patient's medications for A. fib prior to discharge. Reason For Visit: ACUTE ENCEPHALOPATHY SECONDARY TO BRAIN METASTASIS Physical Exam Vital Signs: Temp Pulse Resp BP Pulse Ox 97.6 F 113 H 18 139/71 H 93 07/17/17 07:49 07/17/17 06:00 07/17/17 07:49 07/17/17 06:00 07/17/17 04:13 Intake & Output 07/16/17 07/17/17 07/18/17 06:59 06:59 06:59 Intake Total 1937 887 Balance 1937 887 Weight 71.7 kg 72.3 kg General appearance: PRESENT: no acute distress, well-developed, well-nourished Head exam: PRESENT: atraumatic, normocephalic Eye exam: PRESENT: conjunctiva pink, EOMI. ABSENT: scleral icterus Ear exam: PRESENT: normal external ear exam Mouth exam: PRESENT: moist, tongue midline Neck exam: ABSENT: carotid bruit, JVD, lymphadenopathy, thyromegaly Respiratory exam: PRESENT: clear to auscultation mike. ABSENT: rales, rhonchi, wheezes Cardiovascular exam: PRESENT: RRR. ABSENT: diastolic murmur, rubs, systolic murmur Pulses: PRESENT: normal dorsalis pedis pul Vascular exam: PRESENT: normal capillary refill GI/Abdominal exam: PRESENT: normal bowel sounds, soft. ABSENT: distended, guarding, mass, organolmegaly, rebound, tenderness Rectal exam: PRESENT: deferred Extremities exam: PRESENT: full ROM. ABSENT: calf tenderness, clubbing, pedal edema Musculoskeletal exam: PRESENT: full ROM Neurological exam: PRESENT: alert, awake, oriented to person, oriented to place , oriented to time, oriented to situation, CN II-XII grossly intact. ABSENT: motor sensory deficit Psychiatric exam: PRESENT: appropriate affect, normal mood. ABSENT: homicidal ideation, suicidal ideation Skin exam: PRESENT: dry, intact, warm. ABSENT: cyanosis, rash Results Laboratory Results: 07/16/17 04:25 07/16/17 04:25 Impressions: Abdomen Ultrasound 07/14/17 00:00 IMPRESSION: Fatty liver. No acute findings. Head MRI 07/14/17 00:00 IMPRESSION: ATROPHY AND CHRONIC MICRO-VASCULAR ISCHEMIC CHANGES. Rim enhancing masses in the right frontal lobe and left parietal lobe as noted above consistent with metastatic disease. Other findings as noted above EVIDENCE OF ACUTE STROKE: NO. Chest X-Ray 07/14/17 08:24 IMPRESSION: 1. Stable left upper lobe collapse. 2. Increased density in the left mid lung laterally similar to prior CT with differential including radiation change and pneumonia. 3. Multiple metastatic foci within the lungs largest measuring 1.[address] 07/14/17 09:10 IMPRESSION: Brain metastasis. EVIDENCE OF ACUTE STROKE: NO. Chest/Abdomen CTA 07/15/17 00:00 IMPRESSION: 1. No evidence of pulmonary embolus. 2. Worsening metastatic disease involving the lungs bilaterally with worsening mild mediastinal and right hilar adenopathy. 3. Persistent left upper lobe collapse. 4. Stable area of consolidation in the left mid lung posteriorly which could represent radiation change. 5. Small left pleural effusion improved from the prior study. Abdomen/Pelvis CT 07/15/17 10:17 IMPRESSION: STABLE CORTICAL CYST IN THE RIGHT KIDNEY. NO OTHER SIGNIFICANT OR ACUTE FINDING IN THE ABDOMEN OR PELVIS ON CT SCAN WITH IV CONTRAST. Assessment & Plan - Diagnosis (1) Afib Qualifiers: Atrial fibrillation type: paroxysmal Qualified Code(s): I48.0 - Paroxysmal atrial fibrillation Is this a current diagnosis for this admission?: Yes Plan: Patient still on diltiazem drip. Patient was given additional dose of digoxin and digoxin dose was increased. Awaiting cardiology's recommendations. Patient was placed on Toprol succinate 25 mg p.o. every 12. (2) Brain metastasis Is this a current diagnosis for this admission?: Yes Plan: Secondary to right frontal mass measuring 2.1 x 2.3 cm in diameter and left parietal lobe mass measuring 4.1 x 3.8 cm in diameter: continue steroids (3) Elevated LFTs Is this a current diagnosis for this admission?: Yes Plan: Most likely secondary to fatty liver disease: We will continue to monitor. (4) Debility Is this a current diagnosis for this admission?: Yes Plan: Secondary to brain metastasis of lung cancer: PT OT (5) Hyponatremia Is this a current diagnosis for this admission?: Yes Plan: Most likely secondary to SIADH: Will discontinue IVFs (6) Diabetes type 2, controlled Is this a current diagnosis for this admission?: Yes Plan: Place patient on sliding scale insulin. (7) Hypokalemia Is this a current diagnosis for this admission?: Yes Plan: Resolved. (8) Lung cancer Qualifiers: Laterality: left Lung location: upper lobe of lung Qualified Code(s): C34.12 - Malignant neoplasm of upper lobe, left bronchus or lung Is this a current diagnosis for this admission?: Yes Plan: Per oncology. Family has decided to make patient hospice. When patient is discharged she will receive care at home from hospice. (9) concern for Dysphagia Is this a current diagnosis for this admission?: Yes Plan: We will advance diet to full liquids with scheduled Zofran. (10) DVT prophylaxis Is this a current diagnosis for this admission?: Yes Plan: SCDs - Time Time Spent with patient: 15-24 minutes
[2017-07-17] MEDS: DILTIAZEM HCL/D5W 125 MG/125 ML RTUINJ IV PRN (11:22)
[2017-07-17] MEDS ORDERED: METOPROLOL SUCCINATE 25 MG TAB.SR.24H PO ONE (11:30)
--- NOTE | 2017-07-17 11:55 | PDOC PROGRESS REPORT ---
Subjective Progress Note for:: 07/17/17 Subjective:: Patient seems to be doing better with gradual improvement. Pt is denying any chest arm or neck discomfort. Patient denying any PND, orthopnea. Patient denied any sustained palpitations, dizziness, syncope, near syncope. Patient denying any fever chills. Patient denying any other significant discomfort. Patient is maintaining atrial fibrillation. Heart rate is noted to be still high. Review of systems: Rest review of systems negative. Medications: Medications have been reviewed. Reason For Visit: ACUTE ENCEPHALOPATHY SECONDARY TO BRAIN METASTASIS Physical Exam Vital Signs: Temp Pulse Resp BP Pulse Ox 97.6 F 107 H 18 130/74 H 91 L 07/17/17 07:49 07/17/17 08:00 07/17/17 08:00 07/17/17 11:01 07/17/17 11:01 Intake & Output 07/16/17 07/17/17 07/18/17 06:59 06:59 06:59 Intake Total 1937 887 Balance 1937 887 Weight 71.7 kg 72.3 kg Exam: GENERAL: well-nourished and in no acute distress. Alert and oriented x3 HEAD: Atraumatic, normocephalic. EYES: Pupils equal round and reactive to light, extraocular movements intact, sclera anicteric, conjunctiva are normal. ENT: TMs normal, nares patent, oropharynx clear without exudates. Moist mucous membranes. No oral ulcerations or bleeding gums noted NECK: supple without lymphadenopathy. Trachea is central. No cervical or axillary lymphadenopathy noted. Carotids are 2+, JVD WNL LUNGS: Respiration seems nonlabored, no significant accessory muscle action noted. Few bibasilar crackles and few scattered left-sided wheezes rales or rhonchi noted. No significant dullness noted on percussion. CHEST: Palpation of the chest wall shows no significant chest wall tenderness. No other significant abnormalities noted. 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 ABDOMEN: Soft, no significant tenderness appreciated, normoactive bowel sounds. No guarding, no rebound. No rigidity noted . No masses appreciated. EXTREMITIES: Pedal pulses are 1-2+, no calf tenderness noted. No clubbing or cyanosis.trace to 1+ pedal edema noted NEUROLOGICAL: Focused neurological exam showed no significant neurologic deficit. Normal speech, no focal weakness appreciated. PSYCH: Normal mood, normal affect. Judgment and insight within normal limits. SKIN: No significant ecchymosis, skin is noted to be warm. MUSCULOSKELETAL EXAM: No significant acute joint swelling noted. Results Laboratory Results: 07/16/17 04:25 07/16/17 04:25 Impressions: Abdomen Ultrasound 07/14/17 00:00 IMPRESSION: Fatty liver. No acute findings. Head MRI 07/14/17 00:00 IMPRESSION: ATROPHY AND CHRONIC MICRO-VASCULAR ISCHEMIC CHANGES. Rim enhancing masses in the right frontal lobe and left parietal lobe as noted above consistent with metastatic disease. Other findings as noted above EVIDENCE OF ACUTE STROKE: NO. Chest X-Ray 07/14/17 08:24 IMPRESSION: 1. Stable left upper lobe collapse. 2. Increased density in the left mid lung laterally similar to prior CT with differential including radiation change and pneumonia. 3. Multiple metastatic foci within the lungs largest measuring 1.[address] 07/14/17 09:10 IMPRESSION: Brain metastasis. EVIDENCE OF ACUTE STROKE: NO. Chest/Abdomen CTA 07/15/17 00:00 IMPRESSION: 1. No evidence of pulmonary embolus. 2. Worsening metastatic disease involving the lungs bilaterally with worsening mild mediastinal and right hilar adenopathy. 3. Persistent left upper lobe collapse. 4. Stable area of consolidation in the left mid lung posteriorly which could represent radiation change. 5. Small left pleural effusion improved from the prior study. Abdomen/Pelvis CT 07/15/17 10:17 IMPRESSION: STABLE CORTICAL CYST IN THE RIGHT KIDNEY. NO OTHER SIGNIFICANT OR ACUTE FINDING IN THE ABDOMEN OR PELVIS ON CT SCAN WITH IV CONTRAST. Assessment & Plan - Diagnosis (1) Atrial fibrillation with rapid ventricular response Is this a current diagnosis for this admission?: Yes (2) Abnormal electrocardiogram Is this a current diagnosis for this admission?: Yes (3) Metastatic cancer Is this a current diagnosis for this admission?: Yes (4) Diabetes mellitus Qualifiers: Diabetes mellitus type: type 2 Diabetes mellitus alf insulin use: unspecified alf insulin use status Diabetes mellitus complication status : with unspecified complications Qualified Code(s): E11.8 - Type 2 diabetes mellitus with unspecified complications Is this a current diagnosis for this admission?: Yes (5) Hypertension Qualifiers: Hypertension type: essential hypertension Qualified Code(s): I10 - Essential (primary) hypertension Is this a current diagnosis for this admission?: Yes - Notes Notes: I was asked to help with heart rate control. Today, patient was given an extra dose of metoprolol succinate. Yesterday patient was placed on metoprolol succinate 25 p.o. twice daily. Patient remains on a small dose of IV Cardizem. Patient also received some p.o. digoxin. If digoxin is a tall used for rate control, would limit dose to 0.125 mg p.o. daily. A 2D echocardiogram was obtained in view of markedly abnormal EKG. The echocardiogram shows overall LVEF to be within normal limits. Moderate LVH was noted. Mild valvular regurgitation was noted. LVEF was actually noted to be hyperdynamic. It is felt that beta-kamla would be a better option based on 2D echo review and patient was started on it. Recommend gradually escalating the dose. Although patient has markedly abnormal EKG, do not feel patient is a candidate at this point for any further aggressive evaluation. Will continue to follow patient for heart rate control. Other management plans for other significant medical problems is being left to the hospitalist and oncologist. - Time Time with patient: 15-25 minutes - CODE STATUS : was discussed, patient remains DO NOT RESUSCITATE. Surrogate decision-maker unchanged. Multiple medical problems were addressed. More than 50% of the time spent coordinating care, discussing management plans with involved caregivers. Management plans discussed with involved personnels. Medical decision making was of moderate to high complexity, patient's has multiple comorbidities. Medications reviewed and adjusted accordingly: Yes
[2017-07-17] MEDS: INSULIN LISPRO 100 UNIT/ML 3 ML VIAL SUBCUT PRN (23:46)
[2017-07-18] MEDS: DILTIAZEM HCL/D5W 125 MG/125 ML RTUINJ IV PRN (00:11)
[2017-07-18] MEDS: ONDANSETRON HCL 8 MG TABLET PO SCH ×2 (05:11→11:30)
[2017-07-18 05:37] LABS: ABSOLUTE MONOCYTES (AUTO) 1.4 10^3/uL (0.1-1.4); ABSOLUTE NEUT (AUTO) 10.9 10^3/uL (1.7-8.2); BASOPHILS % (AUTO) 0.1 % (0-2); HEMATOCRIT 37.6 % (36.0-47.0); HEMOGLOBIN 12.3 g/dL (12.0-15.5); LYMPHOCYTES % (AUTO) 7.8 % (13-45); MEAN CORPUSCULAR HEMOGLOBIN 28.5 pg (27.0-33.4); MEAN CORPUSCULAR HGB CONC 32.7 g/dL (32.0-36.0); MEAN CORPUSCULAR VOLUME 87 fl (80-97); MONOCYTES % (AUTO) 10.2 % (3-13); PLATELET COUNT 234 10^3/uL (150-450); RED BLOOD COUNT 4.31 10^6/uL (3.72-5.28); RED CELL DISTRIBUTION WIDTH 21.2 % (11.5-14.0); SEGMENTED NEUTROPHILS % (AUTO) 81.9 % (42-78); TOTAL CELLS COUNTED % (AUTO) 100 %; WHITE BLOOD COUNT 13.3 10^3/uL (4.0-10.5)
[2017-07-18 05:58] LABS: ALANINE AMINOTRANSFERASE 109 U/L (9-52); ALBUMIN 3.6 g/dL (3.5-5.0); ALKALINE PHOSPHATASE 66 U/L (38-126); ANION GAP 11 (5-19); ASPARTATE AMINO TRANSFERASE 88 U/L (14-36); BILIRUBIN,TOTAL 1.6 mg/dL (0.2-1.3); BLOOD UREA NITROGEN 27 mg/dL (7-20); CALCIUM 9.8 mg/dL (8.4-10.2); CARBON DIOXIDE 23 mmol/L (22-30); CHLORIDE 99 mmol/L (98-107); GLUCOSE 169 mg/dL (75-110); POTASSIUM 4.5 mmol/L (3.6-5.0); SODIUM 132.6 mmol/L (137-145); TOTAL PROTEIN 6.5 g/dL (6.3-8.2)
[2017-07-18] MEDS ORDERED: DILTIAZEM HCL 60 MG TABLET PO ONE (06:15)
[2017-07-18] MEDS ORDERED: DIGOXIN 0.25 MG TABLET PO SCH (10:00)
--- NOTE | 2017-07-18 10:21 | PDOC DISCHARGE SUMMARY ---
General - Admit/Disc Date/PCP Admission Date/Primary Care Provider: 07/14/17 10:48 HERIBERTO BROWNE PA-C Discharge Date: 07/18/17 - Discharge Diagnosis (1) Afib Is this a current diagnosis for this admission?: Yes Summary: Will continue diltiazem and Toprol XL. (2) Brain metastasis Is this a current diagnosis for this admission?: Yes Summary: We will continue patient on dexamethasone. Patient will need a follow-up with oncology to determine when they would like to taper medication. Given the fact that patient is going home with hospice would like to continue medication for longer duration of time in order for patient to have the best quality of life. Patient and family have declined radiation to brain (3) Elevated LFTs Is this a current diagnosis for this admission?: Yes Summary: Support of care (4) Debility Is this a current diagnosis for this admission?: Yes Summary: Patient improving. Patient going home with home health. (5) Hyponatremia Is this a current diagnosis for this admission?: Yes Summary: Secondary to brain metastases and lung cancer most likely SIADH: Improved. (6) Diabetes type 2, controlled Is this a current diagnosis for this admission?: Yes Summary: Continue with insulin regimen. (7) Hypokalemia Is this a current diagnosis for this admission?: Yes Summary: Resolved. (8) Lung cancer Is this a current diagnosis for this admission?: Yes Summary: Patient and family has agreed to hospice. (9) concern for Dysphagia Is this a current diagnosis for this admission?: Yes Summary: Resolved patient's been able to tolerate diet. (10) Nausea Is this a current diagnosis for this admission?: Yes Summary: We will write for Mary (11) Acute metabolic encephalopathy Is this a current diagnosis for this admission?: Yes Summary: Secondary to metastatic brain metastases: Patient will continue on steroids. - Additional Information Resuscitation Status: Do Not Resuscitate Discharge Diet: Cardiac, Diabetic Discharge Activity: Activity As Tolerated Prescriptions: Diltiazem HCl [Cardizem 60 mg Tablet] 120 mg PO Q12A #60 tablet Fentanyl [Duragesic 25 mcg/hr Transdermal Patch] 1 each TD Q3D #1 patch.td72 Hydrocodone/Acetaminophen [Lima 5-325 mg Tablet] 1 tab PO Q4HP PRN #6 tablet PRN Reason: Metoprolol Succinate [Toprol Xl 25 mg Tab.sr] 25 mg PO Q12 #60 tab.sr.24h Ondansetron HCl [Zofran 8 mg Tablet] 8 mg PO Q6 #45 tablet Home Medications: Baclofen [Baclofen 10 mg Tablet] 10 mg PO Q6HP PRN 07/14/17 Sitagliptin Phos/Metformin HCl [Janumet 50-1,000 mg Tablet] 1 tab PO DAILY 07/14 Dexamethasone [Decadron 4 mg Tablet] 4 mg PO Q12 #60 tablet 07/18/17 Diltiazem HCl [Cardizem 60 mg Tablet] 120 mg PO Q12A #60 tablet 07/18/17 Fentanyl [Duragesic 25 mcg/hr Transdermal Patch] 1 each TD Q3D #1 patch.td72 02/25 Hydrocodone/Acetaminophen [Lima 5-325 mg Tablet] 1 tab PO Q4HP PRN #6 tablet Metoprolol Succinate [Toprol Xl 25 mg Tab.sr] 25 mg PO Q12 #60 tab.sr.24h Ondansetron HCl [Zofran 8 mg Tablet] 8 mg PO Q6 #45 tablet 07/18/17 History of Present Illness Patient complains of: Confusion History of Present Illness: ANUP BARRIOS is a 67 year old female presented to the emergency room with complaint of confusion. Patient's states that patient has had problems with memory for approximately 2 weeks. also reports that patient has not been eating. reports that patient received her chemo treatment on Thursday. reports the patient is followed by Dr. Aguilar. Patient also complains of having severe headaches 5 out of 5 at times patient denies any fever. Patient does admit to having nausea. Hospital Course Hospital Course: Patient is a 67-year-old female that presented to our facility for confusion. Patient was found to have brain metastases. Patient was placed on steroids. Patient's mentation improved. Patient was seen by oncology who recommended radiation of the brain however patient and family declined. Patient developed A. fib with RVR and was placed on appropriate medications and heart rate is now under better control. Due to patient having brain metastases anticoagulation was not encouraged. Family decided to make patient hospice therefore patient will be discharged home with hospice. Patient was continued on dexamethasone and will need to follow-up with oncology in regards to tapering dose. The reason why patient was continued on dexamethasone as the fact that patient has demonstrated improvement and mental function and with patient going home with hospice would like to provide patient with the best quality of life possible. Physical Exam Vital Signs: Temp Pulse Resp BP Pulse Ox 98.7 F 74 16 129/73 H 91 L 07/18/17 08:17 07/18/17 08:17 07/18/17 08:17 07/18/17 08:17 07/18/17 08:17 Intake & Output 07/17/17 07/18/17 07/19/17 06:59 06:59 07:59 Intake Total 887 649 Balance 887 649 Weight 72.3 kg 73.9 kg General appearance: PRESENT: no acute distress, well-developed, well-nourished Head exam: PRESENT: atraumatic, normocephalic Eye exam: PRESENT: conjunctiva pink, EOMI, PERRLA. ABSENT: scleral icterus Ear exam: PRESENT: normal external ear exam Mouth exam: PRESENT: moist, tongue midline Neck exam: ABSENT: carotid bruit, JVD, lymphadenopathy, thyromegaly Respiratory exam: PRESENT: clear to auscultation mike. ABSENT: rales, rhonchi, wheezes Cardiovascular exam: PRESENT: irregular rhythm. ABSENT: diastolic murmur, rubs , systolic murmur Pulses: PRESENT: normal dorsalis pedis pul Vascular exam: PRESENT: normal capillary refill GI/Abdominal exam: PRESENT: normal bowel sounds, soft. ABSENT: distended, guarding, mass, organolmegaly, rebound, tenderness Rectal exam: PRESENT: deferred Extremities exam: PRESENT: full ROM. ABSENT: calf tenderness, clubbing, pedal edema Neurological exam: PRESENT: alert, awake, oriented to person, oriented to place , oriented to time, oriented to situation, CN II-XII grossly intact. ABSENT: motor sensory deficit Psychiatric exam: PRESENT: appropriate affect, normal mood. ABSENT: homicidal ideation, suicidal ideation Skin exam: PRESENT: dry, intact, warm. ABSENT: cyanosis, rash Results Laboratory Results: 07/18/17 04:47 07/18/17 04:47 07/18/17 07/18/17 04:47 04:47 WBC 13.3 H RBC 4.31 Hgb 12.3 Hct 37.6 MCV 87 MCH 28.5 MCHC 32.7 RDW 21.2 H Plt Count 234 Seg Neutrophils % 81.9 H Lymphocytes % 7.8 L Monocytes % 10.2 Eosinophils % 0.0 Basophils % 0.1 Absolute Neutrophils 10.9 H Absolute Lymphocytes 1.0 Absolute Monocytes 1.4 Absolute Eosinophils 0.0 Absolute Basophils 0.0 Sodium 132.6 L Potassium 4.5 Chloride 99 Carbon Dioxide 23 Anion Gap 11 BUN 27 H Creatinine 1.00 Est GFR ( Amer) > 60 Est GFR (Non-Af Amer) 55 L Glucose 169 H Calcium 9.8 Magnesium 1.9 Total Bilirubin 1.6 H AST 88 H ALT 109 H Alkaline Phosphatase 66 Total Protein 6.5 Albumin 3.6 Impressions: Abdomen Ultrasound 07/14/17 00:00 IMPRESSION: Fatty liver. No acute findings. Head MRI 07/14/17 00:00 IMPRESSION: ATROPHY AND CHRONIC MICRO-VASCULAR ISCHEMIC CHANGES. Rim enhancing masses in the right frontal lobe and left parietal lobe as noted above consistent with metastatic disease. Other findings as noted above EVIDENCE OF ACUTE STROKE: NO. Chest X-Ray 07/14/17 08:24 IMPRESSION: 1. Stable left upper lobe collapse. 2. Increased density in the left mid lung laterally similar to prior CT with differential including radiation change and pneumonia. 3. Multiple metastatic foci within the lungs largest measuring 1.[address] 07/14/17 09:10 IMPRESSION: Brain metastasis. EVIDENCE OF ACUTE STROKE: NO. Chest/Abdomen CTA 07/15/17 00:00 IMPRESSION: 1. No evidence of pulmonary embolus. 2. Worsening metastatic disease involving the lungs bilaterally with worsening mild mediastinal and right hilar adenopathy. 3. Persistent left upper lobe collapse. 4. Stable area of consolidation in the left mid lung posteriorly which could represent radiation change. 5. Small left pleural effusion improved from the prior study. Abdomen/Pelvis CT 07/15/17 10:17 IMPRESSION: STABLE CORTICAL CYST IN THE RIGHT KIDNEY. NO OTHER SIGNIFICANT OR ACUTE FINDING IN THE ABDOMEN OR PELVIS ON CT SCAN WITH IV CONTRAST. Qualifiers - * PATEINT BEING DISCHARGED WITH ANY OF THE FOLLOWING DIAGNOSIS?: No Plan Time Spent: Greater than 30 Minutes
[2017-07-18] MEDS: METOPROLOL SUCCINATE 25 MG TAB.SR.24H PO SCH (11:30)
[2017-07-18] MEDS: DEXAMETHASONE SOD PHOSPHATE INJ 4 MG/1 ML VIAL IV SCH (11:31)
--- NOTE | 2017-07-18 12:30 | PDOC PROGRESS REPORT ---
Subjective Progress Note for:: 07/18/17 Subjective:: Patient seems to be doing better with gradual improvement. Pt is denying any chest arm or neck discomfort. Patient denying any PND, orthopnea. Patient denied any sustained palpitations, dizziness, syncope, near syncope. Patient denying any fever chills. Patient denying any other significant discomfort. Patient is maintaining atrial fibrillation. Following yesterday's adjustment in medications, patient heart rate is now under better control. Review of systems: Rest review of systems negative. Medications: Medications have been reviewed. Reason For Visit: ACUTE ENCEPHALOPATHY SECONDARY TO BRAIN METASTASIS Physical Exam Vital Signs: Temp Pulse Resp BP Pulse Ox 98.7 F 74 16 129/73 H 91 L 07/18/17 08:17 07/18/17 08:17 07/18/17 08:17 07/18/17 08:17 07/18/17 08:17 Intake & Output 07/17/17 07/18/17 07/19/17 06:59 06:59 07:59 Intake Total 887 649 Balance 887 649 Weight 72.3 kg 73.9 kg Exam: GENERAL: well-nourished and in no acute distress. Alert and oriented x3 HEAD: Atraumatic, normocephalic. EYES: Pupils equal round and reactive to light, extraocular movements intact, sclera anicteric, conjunctiva are normal. ENT: TMs normal, nares patent, oropharynx clear without exudates. Moist mucous membranes. No oral ulcerations or bleeding gums noted NECK: supple without lymphadenopathy. Trachea is central. No cervical or axillary lymphadenopathy noted. Carotids are 2+, JVD WNL LUNGS: Respiration seems nonlabored, no significant accessory muscle action noted. Few a scattered left-sided wheezing noted. No significant dullness noted on percussion. CHEST: Palpation of the chest wall shows no significant chest wall tenderness. No other significant abnormalities noted. 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 ABDOMEN: Soft, no significant tenderness appreciated, normoactive bowel sounds. No guarding, no rebound. No rigidity noted . No masses appreciated. EXTREMITIES: Pedal pulses are 1-2+, no calf tenderness noted. No clubbing or cyanosis.trace to 1+ pedal edema noted NEUROLOGICAL: Focused neurological exam showed no significant neurologic deficit. Normal speech, no focal weakness appreciated. PSYCH: Normal mood, normal affect. Judgment and insight within normal limits. SKIN: No significant ecchymosis, skin is noted to be warm. MUSCULOSKELETAL EXAM: No significant acute joint swelling noted. Results Laboratory Results: 07/18/17 04:47 07/18/17 04:47 07/18/17 07/18/17 04:47 04:47 WBC 13.3 H RBC 4.31 Hgb 12.3 Hct 37.6 MCV 87 MCH 28.5 MCHC 32.7 RDW 21.2 H Plt Count 234 Seg Neutrophils % 81.9 H Lymphocytes % 7.8 L Monocytes % 10.2 Eosinophils % 0.0 Basophils % 0.1 Absolute Neutrophils 10.9 H Absolute Lymphocytes 1.0 Absolute Monocytes 1.4 Absolute Eosinophils 0.0 Absolute Basophils 0.0 Sodium 132.6 L Potassium 4.5 Chloride 99 Carbon Dioxide 23 Anion Gap 11 BUN 27 H Creatinine 1.00 Est GFR ( Amer) > 60 Est GFR (Non-Af Amer) 55 L Glucose 169 H Calcium 9.8 Magnesium 1.9 Total Bilirubin 1.6 H AST 88 H ALT 109 H Alkaline Phosphatase 66 Total Protein 6.5 Albumin 3.6 EKG Comments: Telemetry strips shows atrial fibrillation but with controlled ventricular response. Impressions: Abdomen Ultrasound 07/14/17 00:00 IMPRESSION: Fatty liver. No acute findings. Head MRI 07/14/17 00:00 IMPRESSION: ATROPHY AND CHRONIC MICRO-VASCULAR ISCHEMIC CHANGES. Rim enhancing masses in the right frontal lobe and left parietal lobe as noted above consistent with metastatic disease. Other findings as noted above EVIDENCE OF ACUTE STROKE: NO. Chest X-Ray 07/14/17 08:24 IMPRESSION: 1. Stable left upper lobe collapse. 2. Increased density in the left mid lung laterally similar to prior CT with differential including radiation change and pneumonia. 3. Multiple metastatic foci within the lungs largest measuring 1.[address] 07/14/17 09:10 IMPRESSION: Brain metastasis. EVIDENCE OF ACUTE STROKE: NO. Chest/Abdomen CTA 07/15/17 00:00 IMPRESSION: 1. No evidence of pulmonary embolus. 2. Worsening metastatic disease involving the lungs bilaterally with worsening mild mediastinal and right hilar adenopathy. 3. Persistent left upper lobe collapse. 4. Stable area of consolidation in the left mid lung posteriorly which could represent radiation change. 5. Small left pleural effusion improved from the prior study. Abdomen/Pelvis CT 07/15/17 10:17 IMPRESSION: STABLE CORTICAL CYST IN THE RIGHT KIDNEY. NO OTHER SIGNIFICANT OR ACUTE FINDING IN THE ABDOMEN OR PELVIS ON CT SCAN WITH IV CONTRAST. 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 Continue current dosage of metoprolol succinate. Patient could be discharged current medications for heart rate control. A 2D echocardiogram was obtained in view of markedly abnormal EKG. The echocardiogram shows overall LVEF to be within normal limits. Moderate LVH was noted. Mild valvular regurgitation was noted. LVEF was actually noted to be hyperdynamic. Patient has multiple other medical conditions which are being managed by hospitalist and the oncologist. Because of other severe comorbid diagnosis, no further cardiac workup is being planned. Although patient has markedly abnormal EKG, do not feel patient is a candidate at this point for any further aggressive evaluation. Will continue to follow patient for heart rate control. Other management plans for other significant medical problems is being left to the hospitalist and oncologist. - Time Time with patient: 15-25 minutes - CODE STATUS : was discussed, patient remains DO NOT RESUSCITATE. Surrogate decision-maker patient's . Multiple medical problems were addressed. More than 50% of the time spent coordinating care, discussing management plans with involved caregivers. Management plans discussed with involved personnels. Medical decision making was of moderate to high complexity, patient's has multiple comorbidities. Medications reviewed and adjusted accordingly: Yes
--- NOTE | 2017-07-18 12:32 | PDOC PROGRESS REPORT ---
Subjective Progress Note for:: 07/18/17 Subjective:: HR has been controlled now, pt planned for d/c to home hospice today Reason For Visit: ACUTE ENCEPHALOPATHY SECONDARY TO BRAIN METASTASIS Physical Exam Vital Signs: Temp Pulse Resp BP Pulse Ox 98.7 F 74 16 129/73 H 91 L 07/18/17 08:17 07/18/17 08:17 07/18/17 08:17 07/18/17 08:17 07/18/17 08:17 Intake & Output 07/17/17 07/18/17 07/19/17 06:59 06:59 07:59 Intake Total 887 649 Balance 887 649 Weight 72.3 kg 73.9 kg General appearance: PRESENT: no acute distress, well-developed, well-nourished Head exam: PRESENT: atraumatic, normocephalic Eye exam: PRESENT: conjunctiva pink, EOMI, PERRLA. ABSENT: scleral icterus Ear exam: PRESENT: normal external ear exam Mouth exam: PRESENT: moist, tongue midline Neck exam: ABSENT: carotid bruit, JVD, lymphadenopathy, thyromegaly Respiratory exam: PRESENT: clear to auscultation mike. ABSENT: rales, rhonchi, wheezes Cardiovascular exam: PRESENT: RRR. ABSENT: diastolic murmur, rubs, systolic murmur Pulses: PRESENT: normal dorsalis pedis pul Vascular exam: PRESENT: normal capillary refill GI/Abdominal exam: PRESENT: normal bowel sounds, soft. ABSENT: distended, guarding, mass, organolmegaly, rebound, tenderness Rectal exam: PRESENT: deferred Extremities exam: PRESENT: full ROM. ABSENT: calf tenderness, clubbing, pedal edema Neurological exam: PRESENT: alert, awake, oriented to person, oriented to place , oriented to time, oriented to situation, CN II-XII grossly intact. ABSENT: motor sensory deficit Psychiatric exam: PRESENT: appropriate affect, normal mood. ABSENT: homicidal ideation, suicidal ideation Skin exam: PRESENT: dry, intact, warm. ABSENT: cyanosis, rash Results Laboratory Results: 07/18/17 04:47 07/18/17 04:47 07/18/17 07/18/17 04:47 04:47 WBC 13.3 H RBC 4.31 Hgb 12.3 Hct 37.6 MCV 87 MCH 28.5 MCHC 32.7 RDW 21.2 H Plt Count 234 Seg Neutrophils % 81.9 H Lymphocytes % 7.8 L Monocytes % 10.2 Eosinophils % 0.0 Basophils % 0.1 Absolute Neutrophils 10.9 H Absolute Lymphocytes 1.0 Absolute Monocytes 1.4 Absolute Eosinophils 0.0 Absolute Basophils 0.0 Sodium 132.6 L Potassium 4.5 Chloride 99 Carbon Dioxide 23 Anion Gap 11 BUN 27 H Creatinine 1.00 Est GFR ( Amer) > 60 Est GFR (Non-Af Amer) 55 L Glucose 169 H Calcium 9.8 Magnesium 1.9 Total Bilirubin 1.6 H AST 88 H ALT 109 H Alkaline Phosphatase 66 Total Protein 6.5 Albumin 3.6 Impressions: Abdomen Ultrasound 07/14/17 00:00 IMPRESSION: Fatty liver. No acute findings. Head MRI 07/14/17 00:00 IMPRESSION: ATROPHY AND CHRONIC MICRO-VASCULAR ISCHEMIC CHANGES. Rim enhancing masses in the right frontal lobe and left parietal lobe as noted above consistent with metastatic disease. Other findings as noted above EVIDENCE OF ACUTE STROKE: NO. Chest X-Ray 07/14/17 08:24 IMPRESSION: 1. Stable left upper lobe collapse. 2. Increased density in the left mid lung laterally similar to prior CT with differential including radiation change and pneumonia. 3. Multiple metastatic foci within the lungs largest measuring 1.[address] 07/14/17 09:10 IMPRESSION: Brain metastasis. EVIDENCE OF ACUTE STROKE: NO. Chest/Abdomen CTA 07/15/17 00:00 IMPRESSION: 1. No evidence of pulmonary embolus. 2. Worsening metastatic disease involving the lungs bilaterally with worsening mild mediastinal and right hilar adenopathy. 3. Persistent left upper lobe collapse. 4. Stable area of consolidation in the left mid lung posteriorly which could represent radiation change. 5. Small left pleural effusion improved from the prior study. Abdomen/Pelvis CT 07/15/17 10:17 IMPRESSION: STABLE CORTICAL CYST IN THE RIGHT KIDNEY. NO OTHER SIGNIFICANT OR ACUTE FINDING IN THE ABDOMEN OR PELVIS ON CT SCAN WITH IV CONTRAST. Assessment & Plan - Diagnosis (1) Lung cancer Qualifiers: Laterality: left Lung location: upper lobe of lung Qualified Code(s): C34.12 - Malignant neoplasm of upper lobe, left bronchus or lung Is this a current diagnosis for this admission?: Yes Plan: Home hospice today, d/w family and hospice at length, coordination with hospitalist team, greater than 35 minutes (2) Brain metastasis Is this a current diagnosis for this admission?: Yes Plan: No radiation planned (3) Afib Qualifiers: Atrial fibrillation type: paroxysmal Qualified Code(s): I48.0 - Paroxysmal atrial fibrillation Is this a current diagnosis for this admission?: Yes Plan: Heart rate now controlled on current regimen - Time Time Spent with patient: 35 or more minutes
[2017-07-18 13:17] VITALS: BP 167/84
[2017-07-18] MEDS ORDERED: DILTIAZEM HCL 60 MG TABLET PO SCH (18:00)
== END 2017-07-18 15:10 | disposition hospice, home (50) | DRG 55 ==
LOC: ER 08:15 → EH 10:48 → 3N 17:42
PROVIDERS: ADMIT Emergency Medicine; ATTEND Emergency Medicine
PROC: 3E0F73Z Introduction of Anti-inflammatory into Respiratory Tract, Via Natural or Artificial Opening (ICD-10-PCS; principal; 2017-07-14)
DX: C79.31 Secondary malignant neoplasm of brain (principal); E22.2 Syndrome of inappropriate secretion of antidiuretic hormone; C34.12 Malignant neoplasm of upper lobe, left bronchus or lung; Q61.01 Congenital single renal cyst; G13.1 Other systemic atrophy primarily affecting central nervous system in neoplastic disease; Z66 Do not resuscitate; R53.1 Weakness; E87.6 Hypokalemia; I10 Essential (primary) hypertension; K76.0 Fatty (change of) liver, not elsewhere classified; R59.9 Enlarged lymph nodes, unspecified; E11.8 Type 2 diabetes mellitus with unspecified complications; I48.0 Paroxysmal atrial fibrillation; Z90.49 Acquired absence of other specified parts of digestive tract; Z90.710 Acquired absence of both cervix and uterus; Z87.891 Personal history of nicotine dependence; Z88.0 Allergy status to penicillin; Z79.899 Other long term (current) drug therapy
CPT/HCPCS: 36415; 70470; 70553; 71045; 71275; 74177; 76700; 80048; 80053; 81001; 82803; 82962; 83036; 83605; 83735; 84100; 84439; 84443; 85025; 85027; 85610; 87040; 87086; 93005; 93010; 93306; 96374; 96375; 99291; A9577; J0360; J1100; J1160; J1815; J1953; J2060; J2405; J2550; J3010; J3480; J3490; J7030; L0120; S0119; S0164